=== PATIENT | female | born 1950 | race Caucasian/White ===

== ENCOUNTER 2018-12-24 18:46 | Inpatient (IN) | payer MEDICAID, OTHER ==
[~2018-12-24] VITALS: Ht 157.5 cm; Wt 65.0 kg
[2018-12-24] MEDS ORDERED: IBUPROFEN 800 MG TAB PO ONE (19:00)
[2018-12-24] MEDS ORDERED: ATOR40TA68 PO (19:43)
[2018-12-24] MEDS ORDERED: LISI10TA2 PO (19:43)
[2018-12-24] MEDS ORDERED: ASPI-817 PO (19:43)
[2018-12-24] MEDS ORDERED: ONDANSETRON 4 MG INJ IV STA (19:44)
[2018-12-24] MEDS ORDERED: METF100010 PO (19:44)
[2018-12-24] MEDS ORDERED: METO-448 PO (19:44)
[2018-12-24] MEDS ORDERED: morphine 4 MG/ML VIAL IV STA (19:44)
[2018-12-24] MEDS ORDERED: CA/D1TAB3 PO (19:44)
[2018-12-24] MEDS ORDERED: ALEN70TA5 PO (19:45)
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
[2018-12-24] MEDS ORDERED: ACETAMINOPHEN 325 MG TAB PO PRN (20:00)
[2018-12-24] MEDS ORDERED: ONDANSETRON 4 MG INJ IV PRN (20:00)
[2018-12-24 22:47] VITALS: BP 175/73; PULSE 84; RESP 18
[2018-12-24] MEDS ORDERED: morphine 4 MG/ML VIAL IV PRN (23:00)
[2018-12-24 23:02] VITALS: Ht 157.5 cm; Wt 65.0 kg
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
[2018-12-25] MEDS ORDERED: HYDROCODONE/APAP (5/325) TAB PO PRN
[2018-12-25] MEDS ORDERED: morphine 2 MG INJ IV PRN
[2018-12-25] MEDS ORDERED: ALBUTEROL/IPRATROPIUM (NEB) 3 ML AMP HHN PRN
[2018-12-25] MEDS ORDERED: NACL 0.9% 3 ML SYG IV SCH
[2018-12-25] MEDS ORDERED: METOPROLOL 25 MG TAB PO ONE (01:00)
[2018-12-25 02:43] VITALS: BP 164/71; PULSE 82; RESP 16
[2018-12-25] MEDS ORDERED: HYDROmorphONE 1 MG/ML SYG IV ONE (03:00)
[2018-12-25 07:38] VITALS: BP 152/71; PULSE 84; RESP 18
[2018-12-25] MEDS: LISINOPRIL 10 MG TAB PO SCH (08:45)
[2018-12-25] MEDS: HEPARIN 5,000 UNIT/1 ML VIAL SC SCH (08:45)
[2018-12-25] MEDS: METOPROLOL 25 MG TAB PO SCH ×2 (08:46→20:50)
[2018-12-25] MEDS ORDERED: DEXTROSE 50% 50 ML SYRINGE IV PRN ×2 (09:30)
[2018-12-25] MEDS ORDERED: GLUCAGON 1 MG INJ IM PRN (09:30)
[2018-12-25] MEDS ORDERED: GLUCOSE GEL 15 GRAM TUBE BUCCAL PRN (09:30)
[2018-12-25] MEDS ORDERED: GLUCOSE GEL 15 GRAM TUBE PO PRN ×2 (09:30)
[2018-12-25] MEDS: DEXTROSE 5%-0.45% NACL 1,000 ML IV SCH ×2 (09:30→19:30)
[2018-12-25] MEDS ORDERED: hydrALAzine 20 MG INJ IV PRN (09:30)
[2018-12-25] MEDS ORDERED: morphine 4 MG/ML VIAL IV PRN (11:00)
[2018-12-25] MEDS: INSULIN ASPART [NOVOLOG] 3 ML PEN SC SCH ×3 (12:44→20:59)
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
--- NOTE | 2018-12-25 14:38 | PN ---
Date/Time of Note Date/Time of Note DATE: 12/25/18 TIME: 14:38 Objective Vitals Vital Signs Date Temp Pulse Resp B/P (MAP) Pulse Ox O2 O2 Flow FiO2 Time Delivery Rate 12/25/18 98.0 84 18 152/71 97 Room Air 07:38 (98) Intake and Output 12/24/18 12/24/18 12/25/18 1515:00 23:00 07:00 IntakeIntake Total 120 ml 380 ml BalanceBalance 120 ml 380 ml Results Result Diagram: 12/25/18 0452 12/25/18 0452 Medications Medications Current Medications Ondansetron HCl (Zofran Inj) 4 mg BRIDGE ORDER PRN IV NAUSEA/VOMITING; Start 12/24/18 at 20:00; Stop 12/25/18 at 19:59 Acetaminophen (Tylenol Tab) 650 mg ER BRIDGE PRN PO .MILD PAIN 1-3 OR TEMP; Start 12/24/18 at 20:00; Stop 12/25/18 at 19:59 IV Flush (NS 3 ml) 3 ml PER PROTOCOL IV ; Start 12/25/18 at 00:00 Acetaminophen (Tylenol Tab) 650 mg Q6H PRN PO .PAIN 1-3 OR TEMP; Start 12/25/18 at 00:00 Acetaminophen/ Hydrocodone Bitart ([place] (5/325)) 1 tab Q6H PRN PO .MOD PAIN 4- 6 Last administered on 12/25/18at 08:46; Admin Dose 1 TAB; Start 12/25/18 at 00:00 Acetaminophen/ Hydrocodone Bitart ([place] (5/325)) 2 tab Q6H PRN PO .SEVERE PAIN 7-10; Start 12/25/18 at 00:00 Heparin Sodium (Porcine) (Heparin (5000 Units/1ml)) 5,000 unit Q12 SC Last administered on 12/25/18at 08:45; Admin Dose 5,000 UNIT; Start 12/25/18 at 09:00; Status Hold Albuterol/ Ipratropium (Duoneb) 3 ml Q2H RESP THERAPY PRN HHN SHORTNESS OF BREATH; Start 12/25/18 at 00:00 Atorvastatin Calcium (Lipitor) 40 mg QHS PO ; Start 12/25/18 at 21:00 Lisinopril (Zestril) 10 mg DAILY PO Last administered on 12/25/18at 08:45; Admin Dose 10 MG; Start 12/25/18 at 09:00 Metoprolol Tartrate (Lopressor) 12.5 mg BID PO Last administered on 12/25/18at 08:46; Admin Dose 12.5 MG; Start 12/25/18 at 09:00 Morphine Sulfate (morphine) 4 mg Q4H PRN IV SEVERE PAIN LEVEL 7-10; Start 12/25/18 at 11:00 Diagnostic Test (Pha) (Accu-Chek) 1 ea 02 XX ; Start 12/26/18 at 02:00 Insulin Aspart (Novolog Insulin Pen) NOVOLOG *MILD* ALGORITHM WITH MEALS BEDTIME SC Last administered on 12/25/18at 12:44; Admin Dose 2 UNIT; Start 12/25/18 at 11:40 Hydralazine HCl (Apresoline) 10 mg Q4H PRN IV sbp >160; Start 12/25/18 at 09:30 Dextrose/Sodium Chloride 1,000 ml @ 100 mls/hr Q10H IV ; Start 12/25/18 at 09:30 Miscellaneous Information 1 ea NOTE XX ; Start 12/25/18 at 09:30 Glucose (Glutose) 15 gm Q15M PRN PO DECREASED GLUCOSE; Start 12/25/18 at 09:30 Glucose (Glutose) 22.5 gm Q15M PRN PO DECREASED GLUCOSE; Start 12/25/18 at 09:30 Dextrose (D50w Syringe) 25 ml Q15M PRN IV DECREASED GLUCOSE; Start 12/25/18 at 09:30 Dextrose (D50w Syringe) 50 ml Q15M PRN IV DECREASED GLUCOSE; Start 12/25/18 at 09:30 Glucagon (Glucagen) 1 mg Q15M PRN IM DECREASED GLUCOSE; Start 12/25/18 at 09:30 Glucose (Glutose) 15 gm Q15M PRN BUCCAL DECREASED GLUCOSE; Start 12/25/18 at 09:30 VTE Prophylaxis Risk score (from Nsg)>0 risk: 2 SCD applied (from Nsg): No SCD contraindication: other Lines/Catheters IV Catheter Type: Rodriguez in Place: Yes Cont'd rodriguez catheter reason: terminal illness/intractable pain Assessment/Plan Hospital Course Subjective Patient having leg and foot pain otherwise doing well Objective Physical exam General: Patient is laying in bed and answers questions appropriately Mentation: Patient is alert and oriented 4, Head: Normocephalic atraumatic Eyes: EOMI, pupils reactive to light Neck: Supple, nontender, midline Respiratory: Clear to auscultation bilaterally Cardiovascular: regular rate, no obvious murmurs Gastrointestinal: non-tender to palpation, bowel sounds heard. Neurological: Moves all extremities spontaneously Skin: Lower extremity bandaged, CDI bilaterally Assessment and plan Right tibial plateau and left fourth metatarsal fracture -Tib-fib x-ray was noted accidentally to be on the left leg which I confirmed with radiology as to be a typographical error, no fracture on left tibial plateau only right -CT done, orthopedic surgery to reevaluate CT for possible need of surgical intervention Hypertension -Continue home meds Diabetes -Insulin while in house Dyslipidemia -Continue home meds Anemia -Monitor Disposition -Follow-up with orthopedic surgery recommendations, cardiology has been consult ed for preop clearance. NITA MI Dec 25, 2018 14:38
[2018-12-25 16:30] VITALS: BP 147/67; PULSE 82; RESP 18
[2018-12-25] MEDS: HYDROCODONE/APAP (5/325) TAB PO PRN (16:30)
--- NOTE | 2018-12-25 17:28 | RADRPT ---
Echocardiogram Report Patient Name: BRITT CORTESPatient ID: [id number] : 1950 (68y 2m)Study Date: 12/25/2018 12:16:10 PM Gender: FAccession #: [id number] Tech: LE Location: Ref.Physician: NITA MI Height(Cm): BSA: Weight(Kg): Quality: GoodAccount #: Procedures: Echocardiographic Report: Transthoracic echocardiogram with complete 2D, M-Mode, and doppler examination. Indications: Evaluate Left Ventricular function. Measurements: 2D/M Mode Doppler Measurement Value Normal Range Measurement Value Normal Range LVIDd 2D 3.8 [ 3.8 - 5.2 ] cm RHONDA VTI 2.2 [ 2.0 - 4.0 ] cm2 LVIDs 2D 2.6 [ 2.2 - 3.5 ] cm AV Mean Ruslan 0.9 [ 70.0 - 90.0 ] cm/sec LVPWd 2D 1.0 [ 0.6 - 0.9 ] cm AV Mean PG 3.0 [ 2.0 - 4.0 ] mmHg IVSd 2D 1.0 [ 0.6 - 0.9 ] cm AV VTI 25.9 cm EDV 2D 63.1 [ 46.0 - 106.0 ] ml AI Peak PG 58.0 mmHg ESV 2D 25.1 [ 14.0 - 42.0 ] ml AI Peak Ruslan 3.8 cm/sec EF 2D 60.2 [ 54.0 - 74.0 ] percent AI PHT 322.0 msec LVOT Diam 1.9 [ 2.1 - 2.5 ] cm LVOT Mean Ruslan 0.7 [ 60.0 - 80.0 ] cm/sec LVOT Mean PG 2.0 [ 1.0 - 3.0 ] mmHg LVOT Peak Ruslan 1.0 [ 70.0 - 110.0 ] cm/sec LVOT Peak PG 4.0 [ 2.0 - 6.0 ] mmHg LVOT VTI 20.4 [ 20.0 - 30.0 ] cm MV E Peak Ruslan 0.7 [ 60.0 - 130.0 ] cm/sec MV A Peak Ruslan 0.9 [ 100.0 - 120.0 ] cm/sec MV E/A 0.7 [ 0.8 - 1.5 ] ratio MV Decel Time 303 [ 104 - 258 ] msec Lat E` Ruslan 0.1 [ 10.0 - 15.0 ] cm/sec Lateral E/E` 10.7 [ 1.0 - 2.0 ] ratio Med E` Ruslan 0.1 cm/sec MV E/A 0.7 [ 0.8 - 1.5 ] ratio TR Peak Ruslan 2.1 [ 100.0 - 280.0 ] cm/sec TR Peak PG 17.0 mmHg PV Peak Ruslan 0.5 [ 40.0 - 80.0 ] cm/sec PV Peak PG 1.0 mmHg RVSP 20.0 [ 10.0 - 36.0 ] mmHg RA Pressure 3.0 mmHg Findings: Left Ventricle: Normal left ventricular systolic function. Normal left ventricular cavity size. Normal left ventricular wall thickness. Ejection fraction is visually estimated at 60 %. Tissue Doppler/Mitral Doppler indices are consistent with impaired relaxation (Stage I diastolic dysfunction). Right Ventricle: Normal right ventricular size. Normal right ventricular systolic function. Left Atrium: Upper limit of normal left atrial size. Right Atrium: The right atrium is normal in size. Atrial Septum: Normal atrial septum. Mitral Valve: Normal appearance and function of the mitral valve with trace physiologic regurgitation. Mild mitral leaflet calcification. Aortic Valve: Normal appearance of the aortic valve. No significant aortic stenosis with mild insufficiency. Tricuspid Valve: Normal appearance of the tricuspid valve. Normal right ventricular systolic pressure. Estimated peak PA systolic pressure 20 mmHg. There is trace tricuspid regurgitation. Pulmonic Valve: Pulmonic valve not well visualized. No evidence of pulmonic regurgitation. Pericardium: Normal pericardium with no significant pericardial effusion. Aorta: Normal aortic root. IVC: Normal size and normal respiratory collapse consistent with normal right atrial pressure. Conclusions: Normal left ventricular systolic function. Normal left ventricular cavity size. Normal left ventricular wall thickness. Ejection fraction is visually estimated at 60 %. Tissue Doppler/Mitral Doppler indices are consistent with impaired relaxation (Stage I diastolic dysfunction). Electronically Signed By: Stanley Urena 2018-12-25 17:28:02 PDT
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
[2018-12-25 20:20] VITALS: BP 128/56; PULSE 80; RESP 18
[2018-12-25] MEDS: ATORVASTATIN 40 MG TAB PO SCH (20:50)
[2018-12-26] MEDS: ACCU-CHEK XX SCH (01:26)
[2018-12-26 02:32] VITALS: BP 145/64; PULSE 81; RESP 18
[2018-12-26] MEDS: DEXTROSE 5%-0.45% NACL 1,000 ML IV SCH ×2 (02:41→15:30)
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
[2018-12-26 08:00] VITALS: BP 126/64; PULSE 79; RESP 18
[2018-12-26] MEDS: LISINOPRIL 10 MG TAB PO SCH (08:55)
[2018-12-26] MEDS: METOPROLOL 25 MG TAB PO SCH ×2 (08:55→21:34)
[2018-12-26] MEDS: INSULIN ASPART [NOVOLOG] 3 ML PEN SC SCH ×4 (08:58→21:38)
[2018-12-26 14:00] VITALS: BP 135/77; PULSE 83; RESP 18
--- NOTE | 2018-12-26 14:18 | PN ---
Date/Time of Note Date/Time of Note DATE: 12/26/18 TIME: 14:18 Objective Vitals Vital Signs Date Temp Pulse Resp B/P (MAP) Pulse Ox O2 O2 Flow FiO2 Time Delivery Rate 12/26/18 98.8 79 18 126/64 96 08:00 (84) 12/25/18 Room Air 16:30 Intake and Output 12/25/18 12/25/18 12/26/18 1515:00 23:00 07:00 IntakeIntake Total 540 ml 480 ml OutputOutput Total 500 ml 500 ml BalanceBalance 40 ml -20 ml Results Result Diagram: 12/26/18 0427 12/26/18 0427 Medications Medications Current Medications IV Flush (NS 3 ml) 3 ml PER PROTOCOL IV ; Start 12/25/18 at 00:00 Acetaminophen (Tylenol Tab) 650 mg Q6H PRN PO .PAIN 1-3 OR TEMP; Start 12/25/18 at 00:00 Acetaminophen/ Hydrocodone Bitart ([place] (5/325)) 1 tab Q6H PRN PO .MOD PAIN 4- 6 Last administered on 12/25/18at 08:46; Admin Dose 1 TAB; Start 12/25/18 at 00:00 Acetaminophen/ Hydrocodone Bitart ([place] (5/325)) 2 tab Q6H PRN PO .SEVERE PAIN 7-10 Last administered on 12/25/18at 16:30; Admin Dose 2 TAB; Start 12/25/18 at 00:00 Heparin Sodium (Porcine) (Heparin (5000 Units/1ml)) 5,000 unit Q12 SC Last administered on 12/25/18at 08:45; Admin Dose 5,000 UNIT; Start 12/25/18 at 09:00; Status Hold Albuterol/ Ipratropium (Duoneb) 3 ml Q2H RESP THERAPY PRN HHN SHORTNESS OF BREATH; Start 12/25/18 at 00:00 Atorvastatin Calcium (Lipitor) 40 mg QHS PO Last administered on 12/25/18at 20:50; Admin Dose 40 MG; Start 12/25/18 at 21:00 Lisinopril (Zestril) 10 mg DAILY PO Last administered on 12/26/18at 08:55; Admin Dose 10 MG; Start 12/25/18 at 09:00 Metoprolol Tartrate (Lopressor) 12.5 mg BID PO Last administered on 12/26/18at 08:55; Admin Dose 12.5 MG; Start 12/25/18 at 09:00 Diagnostic Test (Pha) (Accu-Chek) 1 ea 02 XX Last administered on 12/26/18at 01:26; Admin Dose 1 EA; Start 12/26/18 at 02:00 Insulin Aspart (Novolog Insulin Pen) NOVOLOG *MILD* ALGORITHM WITH MEALS BEDTIME SC Last administered on 12/26/18at 13:26; Admin Dose 3 UNIT; Start 12/25/18 at 11:40 Hydralazine HCl (Apresoline) 10 mg Q4H PRN IV sbp >160; Start 12/25/18 at 09:30 Dextrose/Sodium Chloride 1,000 ml @ 100 mls/hr Q10H IV ; Start 12/25/18 at 09:30 Miscellaneous Information 1 ea NOTE XX ; Start 12/25/18 at 09:30 Glucose (Glutose) 15 gm Q15M PRN PO DECREASED GLUCOSE; Start 12/25/18 at 09:30 Glucose (Glutose) 22.5 gm Q15M PRN PO DECREASED GLUCOSE; Start 12/25/18 at 09:30 Dextrose (D50w Syringe) 25 ml Q15M PRN IV DECREASED GLUCOSE; Start 12/25/18 at 09:30 Dextrose (D50w Syringe) 50 ml Q15M PRN IV DECREASED GLUCOSE; Start 12/25/18 at 09:30 Glucagon (Glucagen) 1 mg Q15M PRN IM DECREASED GLUCOSE; Start 12/25/18 at 09:30 Glucose (Glutose) 15 gm Q15M PRN BUCCAL DECREASED GLUCOSE; Start 12/25/18 at 09:30 Morphine Sulfate (morphine) 1 mg Q4H PRN IV SEVERE PAIN LEVEL 7-10; Start 12/26/18 at 15:00 VTE Prophylaxis Risk score (from Nsg)>0 risk: 3 SCD applied (from Nsg): No SCD contraindication: other Lines/Catheters IV Catheter Type: Gamez in Place: No Assessment/Plan Hospital Course Subjective Patient having leg and foot pain otherwise doing well Objective Physical exam General: Patient is laying in bed and answers questions appropriately Mentation: Patient is alert and oriented 4, Head: Normocephalic atraumatic Eyes: EOMI, pupils reactive to light Neck: Supple, nontender, midline Respiratory: Clear to auscultation bilaterally Cardiovascular: regular rate, no obvious murmurs Gastrointestinal: non-tender to palpation, bowel sounds heard. Neurological: Moves all extremities spontaneously Skin: Lower extremity bandaged, CDI bilaterally Assessment and plan Right tibial plateau and left fourth metatarsal fracture -Tib-fib x-ray was noted accidentally to be on the left leg which I confirmed with radiology as to be a typographical error, no fracture on left tibial plateau only right -CT done, orthopedic surgery to reevaluate CT for possible need of surgical intervention Hypertension -Continue home meds Diabetes -Insulin while in house Dyslipidemia -Continue home meds Anemia -Monitor Disposition -Follow-up with orthopedic surgery recommendations, cardiology has been consulted for preop clearance. NITA MI Dec 26, 2018 14:18
[2018-12-26] MEDS ORDERED: morphine 2 MG INJ IV PRN (15:00)
[2018-12-26] MEDS: HYDROCODONE/APAP (5/325) TAB PO PRN ×2 (15:11→22:33)
[2018-12-26 20:47] VITALS: BP 116/59; PULSE 80; RESP 20
[2018-12-26] MEDS: ATORVASTATIN 40 MG TAB PO SCH (21:33)
[2018-12-26] MEDS: HEPARIN 5,000 UNIT/1 ML VIAL SC SCH (21:39)
[2018-12-27] MEDS: DEXTROSE 5%-0.45% NACL 1,000 ML IV SCH ×3 (01:30→21:30)
[2018-12-27] MEDS: ACCU-CHEK XX SCH (01:36)
[2018-12-27 02:14] VITALS: BP 131/61; PULSE 95; RESP 18
[2018-12-27] MEDS: HYDROCODONE/APAP (5/325) TAB PO PRN (04:29)
[2018-12-27 08:27] VITALS: BP 121/57; PULSE 86; RESP 18
[2018-12-27] MEDS: METOPROLOL 25 MG TAB PO SCH ×2 (09:34→20:17)
[2018-12-27] MEDS: HEPARIN 5,000 UNIT/1 ML VIAL SC SCH (09:35)
[2018-12-27] MEDS: LISINOPRIL 10 MG TAB PO SCH (09:35)
[2018-12-27] MEDS: INSULIN ASPART [NOVOLOG] 3 ML PEN SC SCH ×4 (09:36→20:20)
--- NOTE | 2018-12-27 12:57 | PN ---
Date/Time of Note Date/Time of Note DATE: 12/27/18 TIME: 12:57 Objective Vitals Vital Signs Date Temp Pulse Resp B/P (MAP) Pulse Ox O2 O2 Flow FiO2 Time Delivery Rate 12/27/18 98.3 86 18 121/57 96 08:27 (78) 12/25/18 Room Air 16:30 Intake and Output 12/26/18 12/26/18 12/27/18 1515:00 23:00 07:00 OutputOutput Total 2800 ml BalanceBalance -2800 ml Results Result Diagram: 12/27/18 0419 12/27/18 0419 Medications Medications Current Medications IV Flush (NS 3 ml) 3 ml PER PROTOCOL IV ; Start 12/25/18 at 00:00 Acetaminophen (Tylenol Tab) 650 mg Q6H PRN PO .PAIN 1-3 OR TEMP; Start 12/25/18 at 00:00 Acetaminophen/ Hydrocodone Bitart ([place] (5/325)) 1 tab Q6H PRN PO .MOD PAIN 4- 6 Last administered on 12/25/18at 08:46; Admin Dose 1 TAB; Start 12/25/18 at 00:00 Acetaminophen/ Hydrocodone Bitart ([place] (5/325)) 2 tab Q6H PRN PO .SEVERE PAIN 7-10 Last administered on 12/27/18 04:29; Admin Dose 2 TAB; Start 12/25/18 at 00:00 Heparin Sodium (Porcine) (Heparin (5000 Units/1ml)) 5,000 unit Q12 SC Last administered on 12/27/18 09:35; Admin Dose 5,000 UNIT; Start 12/25/18 at 09:00; Status Hold Albuterol/ Ipratropium (Duoneb) 3 ml Q2H RESP THERAPY PRN HHN SHORTNESS OF BREATH; Start 12/25/18 at 00:00 Atorvastatin Calcium (Lipitor) 40 mg QHS PO Last administered on 12/26/18at 21:33; Admin Dose 40 MG; Start 12/25/18 at 21:00 Lisinopril (Zestril) 10 mg DAILY PO Last administered on 12/27/18at 09:35; Admin Dose 10 MG; Start 12/25/18 at 09:00 Metoprolol Tartrate (Lopressor) 12.5 mg BID PO Last administered on 3/17/19at 09:34; Admin Dose 12.5 MG; Start 12/25/18 at 09:00 Diagnostic Test (Pha) (Accu-Chek) 1 ea 02 XX Last administered on 12/26/18at 01:26; Admin Dose 1 EA; Start 12/26/18 at 02:00 Insulin Aspart (Novolog Insulin Pen) NOVOLOG *MILD* ALGORITHM WITH MEALS BEDTIME SC Last administered on 12/27/18at 09:36; Admin Dose 2 UNIT; Start 12/25/18 at 11:40 Hydralazine HCl (Apresoline) 10 mg Q4H PRN IV sbp >160; Start 12/25/18 at 09:30 Dextrose/Sodium Chloride 1,000 ml @ 100 mls/hr Q10H IV ; Start 12/25/18 at 09:30 Miscellaneous Information 1 ea NOTE XX ; Start 12/25/18 at 09:30 Glucose (Glutose) 15 gm Q15M PRN PO DECREASED GLUCOSE; Start 12/25/18 at 09:30 Glucose (Glutose) 22.5 gm Q15M PRN PO DECREASED GLUCOSE; Start 12/25/18 at 09:30 Dextrose (D50w Syringe) 25 ml Q15M PRN IV DECREASED GLUCOSE; Start 12/25/18 at 09:30 Dextrose (D50w Syringe) 50 ml Q15M PRN IV DECREASED GLUCOSE; Start 12/25/18 at 09:30 Glucagon (Glucagen) 1 mg Q15M PRN IM DECREASED GLUCOSE; Start 12/25/18 at 09:30 Glucose (Glutose) 15 gm Q15M PRN BUCCAL DECREASED GLUCOSE; Start 12/25/18 at 09:30 Morphine Sulfate (morphine) 1 mg Q4H PRN IV SEVERE PAIN LEVEL 7-10 Last administered on 12/26/18at 18:02; Admin Dose 1 MG; Start 12/26/18 at 15:00 VTE Prophylaxis Risk score (from Nsg)>0 risk: 12 SCD applied (from Nsg): Yes Lines/Catheters IV Catheter Type: Rodriguez in Place: Yes Cont'd rodriguez catheter reason: terminal illness/intractable pain Assessment/Plan Hospital Course Subjective Patient having leg and foot pain otherwise doing well Objective Physical exam General: Patient is laying in bed and answers questions appropriately Mentation: Patient is alert and oriented 4, Head: Normocephalic atraumatic Eyes: EOMI, pupils reactive to light Neck: Supple, nontender, midline Respiratory: Clear to auscultation bilaterally Cardiovascular: regular rate, no obvious murmurs Gastrointestinal: non-tender to palpation, bowel sounds heard. Neurological: Moves all extremities spontaneously Skin: Lower extremity bandaged, CDI bilaterally Assessment and plan Right tibial plateau and left fourth metatarsal fracture -Tib-fib x-ray was noted accidentally to be on the left leg which I confirmed with radiology as to be a typographical error, no fracture on left tibial plateau only right -CT done, orthopedic surgery to reevaluate CT for possible need of surgical intervention Hypertension -Continue home meds Diabetes -Insulin while in house Dyslipidemia -Continue home meds Anemia -Monitor Disposition -Follow-up with orthopedic surgery recommendations, cardiology has risk stratified patient. NITA MI Dec 27, 2018 12:57
[2018-12-27 14:20] VITALS: BP 159/76; PULSE 88; RESP 18
[2018-12-27 15:12] VITALS: BP 138/74; PULSE 86; RESP 18
[2018-12-27] MEDS: traMADol 50 MG TAB PO PRN (15:27)
--- NOTE | 2018-12-27 17:18 | CONS ---
Assessment/Plan Assessment/Plan Hospital Course (Demo Recall) Assessment: Pre-operative cardiac evaluation - possible right knee surgery Lateral tibial plateau fracture of the right knee Left 4th metatarsal fracture Hypertension Dyslipidemia Diabetes mellitus History of breast cancer, status post left mastectomy Recommendations: Low to intermediate cardiac risk patient planned for moderate cardiac risk procedure. No evidence of unstable cardiac condition. Patient is optimized for surgery from cardiac standpoint. -EKG and echocardiogram reviewed -continue metoprolol and lisinopril -continue atorvastatin Consultation Date/Type/Reason Admit Date/Time Dec 24, 2018 at 19:49 Initial Consult Date Type of Consult Cardiology Date/Time of Note DATE: 12/27/18 TIME: : 24 HR Interval Summary Free Text/Dictation No acute events. Detailed Summary Additional Comments 14 point review of systems without changes. Exam/Review of Systems Vital Signs Vitals Vital Signs Date Temp Pulse Resp B/P (MAP) Pulse Ox O2 O2 Flow FiO2 Time Delivery Rate 12/27/18 98.5 86 18 138/74 97 15:12 (95) 12/25/18 Room Air 16:30 Intake and Output 12/26/18 12/26/18 12/27/18 1515:00 23:00 07:00 OutputOutput Total 2800 ml BalanceBalance -2800 ml Exam Exam Constitutional: alert, well developed Psych: no complaints, nl mood/affect Head: normocephalic, atraumatic Eyes: nl conjunctiva, nl lids ENMT: nl external ears & nose, nl nasal mucosa & septum Neck: supple, non-tender; No jvd Respiratory: clear to auscultation Cardiovascular: regular rate and rhythm Gastrointestinal: soft, non-tender Musculoskeletal: other (right lower extremity immobilized) Extremities: No cyanosis, No clubbing, No edema Neurological: nl mental status, nl speech Labs Result Diagram: 12/27/18 0419 12/27/18 0419 Results 24hrs Laboratory Tests Test 12/26/18 17:44 12/26/18 21:32 12/27/18 01:32 12/27/18 04:19 Bedside Glucose 184 262 H 197 White Blood Count 10.3 Red Blood Count 4.00 L Hemoglobin 11.4 L Hematocrit 34.6 L Mean Corpuscular 86.5 Volume Mean Corpuscular 28.5 L Hemoglobin Mean Corpuscular 32.9 Hemoglobin Concent Red Cell 12.6 Distribution Width Platelet Count 228 Mean Platelet Volume 11.1 H Immature 0.200 Granulocytes % Neutrophils % 59.5 Lymphocytes % 18.0 Monocytes % 9.8 Eosinophils % 11.8 H Basophils % 0.7 Nucleated Red Blood 0.0 Cells % Immature 0.020 Granulocytes # Neutrophils # 6.1 Lymphocytes # 1.9 Monocytes # 1.0 H Eosinophils # 1.2 H Basophils # 0.1 Nucleated Red Blood 0.0 Cells # Sodium Level 134 L Potassium Level 4.2 Chloride Level 99 Carbon Dioxide Level 25 Anion Gap 10 Blood Urea Nitrogen 13 Creatinine 0.51 Est Glomerular > 60 Filtrat Rate mL/min Glucose Level 212 Calcium Level 9.1 Phosphorus Level 3.7 Magnesium Level 1.9 Test 12/27/18 08:43 12/27/18 12:40 Bedside Glucose 217 213 Medications Medications Current Medications IV Flush (NS 3 ml) 3 ml PER PROTOCOL IV ; Start 12/25/18 at 00:00 Acetaminophen (Tylenol Tab) 650 mg Q6H PRN PO .PAIN 1-3 OR TEMP; Start 12/25/18 at 00:00 Acetaminophen/ Hydrocodone Bitart ([place] (5/325)) 1 tab Q6H PRN PO .MOD PAIN 4- 6 Last administered on 12/25/18at 08:46; Admin Dose 1 TAB; Start 12/25/18 at 00:00 Heparin Sodium (Porcine) (Heparin (5000 Units/1ml)) 5,000 unit Q12 SC Last administered on 12/27/18at 09:35; Admin Dose 5,000 UNIT; Start 12/25/18 at 09:00; Status Hold Albuterol/ Ipratropium (Duoneb) 3 ml Q2H RESP THERAPY PRN HHN SHORTNESS OF BREATH; Start 12/25/18 at 00:00 Atorvastatin Calcium (Lipitor) 40 mg QHS PO Last administered on 12/26/18at 21:33; Admin Dose 40 MG; Start 12/25/18 at 21:00 Lisinopril (Zestril) 10 mg DAILY PO Last administered on 12/27/18at 09:35; Admin Dose 10 MG; Start 12/25/18 at 09:00 Metoprolol Tartrate (Lopressor) 12.5 mg BID PO Last administered on 12/27/18at 09:34; Admin Dose 12.5 MG; Start 12/25/18 at 09:00 Diagnostic Test (Pha) (Accu-Chek) 1 ea 02 XX Last administered on 12/26/18at 01:26; Admin Dose 1 EA; Start 12/26/18 at 02:00 Insulin Aspart (Novolog Insulin Pen) NOVOLOG *MILD* ALGORITHM WITH MEALS BE DTIME SC Last administered on 12/27/18at 13:19; Admin Dose 2 UNIT; Start 12/25/18 at 11:40 Hydralazine HCl (Apresoline) 10 mg Q4H PRN IV sbp >160; Start 12/25/18 at 09:30 Dextrose/Sodium Chloride 1,000 ml @ 100 mls/hr Q10H IV ; Start 12/25/18 at 09:30 Miscellaneous Information 1 ea NOTE XX ; Start 12/25/18 at 09:30 Glucose (Glutose) 15 gm Q15M PRN PO DECREASED GLUCOSE; Start 12/25/18 at 09:30 Glucose (Glutose) 22.5 gm Q15M PRN PO DECREASED GLUCOSE; Start 12/25/18 at 09:30 Dextrose (D50w Syringe) 25 ml Q15M PRN IV DECREASED GLUCOSE; Start 12/25/18 at 09:30 Dextrose (D50w Syringe) 50 ml Q15M PRN IV DECREASED GLUCOSE; Start 12/25/18 at 09:30 Glucagon (Glucagen) 1 mg Q15M PRN IM DECREASED GLUCOSE; Start 12/25/18 at 09:30 Glucose (Glutose) 15 gm Q15M PRN BUCCAL DECREASED GLUCOSE; Start 12/25/18 at 09:30 Morphine Sulfate (morphine) 1 mg Q4H PRN IV SEVERE PAIN LEVEL 7-10 Last administered on 12/26/18at 18:02; Admin Dose 1 MG; Start 12/26/18 at 15:00 Tramadol HCl (Ultram) 50 mg Q6H PRN PO MODERATE PAIN LEVEL 4-6 Last administered on 12/27/18at 15:27; Admin Dose 50 MG; Start 12/27/18 at 15:00 HOWARD ALLISON MD Dec 27, 2018 17:18
[2018-12-27 19:55] VITALS: BP 159/76; PULSE 89; RESP 16
[2018-12-27] MEDS: ATORVASTATIN 40 MG TAB PO SCH (20:17)
--- NOTE | 2018-12-27 23:11 | PN ---
DATE: 12/27/2018 CT scan of the right knee revealed a lateral tibial plateau fracture with at least 5 mm of depression . She will be scheduled for open reduction and internal fixation of the lateral tibial plateau fract ure with bone graft. Her right knee will be protected with a long leg brace with a dial lock at the knee joint postoperatively. Dictated By: ALONSO SCHILLING/SCOTTIE Conf#: [id number] DID#: [id number] CC: IFTIKHAR TERAN MD;*EndCC*
[2018-12-28] MEDS: ACCU-CHEK XX SCH (02:00)
[2018-12-28] MEDS ORDERED: ALPRAZOLAM 1 MG TAB PO ONE ×2 (02:30→05:30)
[2018-12-28 02:34] VITALS: BP 165/73; PULSE 89; RESP 18
[2018-12-28 02:50] VITALS: BP 142/70; RESP 16
[2018-12-28] MEDS: DEXTROSE 5%-0.45% NACL 1,000 ML IV SCH (07:30)
[2018-12-28 07:51] VITALS: BP 134/61; PULSE 92; RESP 18
--- NOTE | 2018-12-28 09:44 | PN ---
Date/Time of Note Date/Time of Note DATE: 12/28/18 TIME: 09:44 Assessment/Plan VTE Prophylaxis Risk score (from Nsg)>0 risk: 8 SCD applied (from Nsg): Yes Pharmacological prophylaxis: heparin Lines/Catheters IV Catheter Type (from Nrsg): Saline Lock Urinary Cath still in place: Yes Reason Cath still needed: terminal illness/intractable pain Assessment/Plan Assessment/Plan 1. Right tibial plateau and left fourth metatarsal fracture - Ortho on board and plans for ORIF tomorrow - will keep NPO after midnight and hold heparin - Xray LE noted - Cardiology input appreciated and ECHO/EKG reviewed. Continue current medications 2. Hypertension - Continue home meds 3. Diabetes - Insulin while in house - on metformin as outpatient 4. Dyslipidemia - Continue home meds 5. Mild Anemia - Monitor 6. Disposition - Plans for orthopedic intervention tomorrow Result Diagram: 12/28/18 0436 12/28/18 0436 Results 24hrs Laboratory Tests Test 12/27/18 12:40 12/27/18 17:46 12/27/18 20:16 12/28/18 01:51 Bedside Glucose 213 217 206 200 Test 12/28/18 04:36 12/28/18 08:24 White Blood Count 11.6 H Red Blood Count 4.12 L Hemoglobin 11.7 L Hematocrit 34.7 L Mean Corpuscular 84.2 Volume Mean Corpuscular 28.4 L Hemoglobin Mean Corpuscular 33.7 Hemoglobin Concent Red Cell 12.2 Distribution Width Platelet Count 255 Mean Platelet Volume 10.6 H Immature 0.300 Granulocytes % Neutrophils % 64.6 Lymphocytes % 17.0 Monocytes % 11.4 H Eosinophils % 6.3 Basophils % 0.4 Nucleated Red Blood 0.0 Cells % Immature 0.040 H Granulocytes # Neutrophils # 7.5 Lymphocytes # 2.0 Monocytes # 1.3 H Eosinophils # 0.7 H Basophils # 0.1 Nucleated Red Blood 0.0 Cells # Sodium Level 134 L Potassium Level 4.3 Chloride Level 95 L Carbon Dioxide Level 24 Anion Gap 15 H Blood Urea Nitrogen 14 Creatinine 0.41 L Est Glomerular > 60 Filtrat Rate mL/min Glucose Level 206 Calcium Level 8.9 Phosphorus Level 3.1 Magnesium Level 2.0 Bedside Glucose 204 Subjective 24 Hr Interval Summary Free Text/Dictation Patient sleeping this am after given pain medications. Per daughter at bedside, patient has been hallucinating and pain control adjusted yesterday. Exam/Review of Systems Exam Vitals Vital Signs Date Temp Pulse Resp B/P (MAP) Pulse Ox O2 O2 Flow FiO2 Time Delivery Rate 12/28/18 98.2 92 18 134/61 96 07:51 (85) 12/25/18 Room Air 16:30 Intake and Output 12/27/18 12/27/18 12/28/18 1515:00 23:00 07:00 OutputOutput Total 1000 ml 1000 ml BalanceBalance -1000 ml -1000 ml Exam General: Patient is laying in bed and answers questions appropriately Respiratory: Clear to auscultation bilaterally. no wheezing or rhonchi Cardiovascular: regular rate and rhythm, no obvious murmurs Gastrointestinal: non-tender to palpation, bowel sounds heard. Ext: non mobilized right LE Skin: Lower extremity bandaged, CDI bilaterally Results Results 24hrs Laboratory Tests Test 12/27/18 12:40 12/27/18 17:46 12/27/18 20:16 12/28/18 01:51 Bedside Glucose 213 217 206 200 Test 12/28/18 04:36 12/28/18 08:24 White Blood Count 11.6 H Red Blood Count 4.12 L Hemoglobin 11.7 L Hematocrit 34.7 L Mean Corpuscular 84.2 Volume Mean Corpuscular 28.4 L Hemoglobin Mean Corpuscular 33.7 Hemoglobin Concent Red Cell 12.2 Distribution Width Platelet Count 255 Mean Platelet Volume 10.6 H Immature 0.300 Granulocytes % Neutrophils % 64.6 Lymphocytes % 17.0 Monocytes % 11.4 H Eosinophils % 6.3 Basophils % 0.4 Nucleated Red Blood 0.0 Cells % Immature 0.040 H Granulocytes # Neutrophils # 7.5 Lymphocytes # 2.0 Monocytes # 1.3 H Eosinophils # 0.7 H Basophils # 0.1 Nucleated Red Blood 0.0 Cells # Sodium Level 134 L Potassium Level 4.3 Chloride Level 95 L Carbon Dioxide Level 24 Anion Gap 15 H Blood Urea Nitrogen 14 Creatinine 0.41 L Est Glomerular > 60 Filtrat Rate mL/min Glucose Level 206 Calcium Level 8.9 Phosphorus Level 3.1 Magnesium Level 2.0 Bedside Glucose 204 Medications Medication Current Medications IV Flush (NS 3 ml) 3 ml PER PROTOCOL IV ; Start 12/25/18 at 00:00 Acetaminophen (Tylenol Tab) 650 mg Q6H PRN PO .PAIN 1-3 OR TEMP; Start 12/25/18 at 00:00 Acetaminophen/ Hydrocodone Bitart ([place] (5/325)) 1 tab Q6H PRN PO .MOD PAIN 4- 6 Last administered on 12/25/18at 08:46; Admin Dose 1 TAB; Start 12/25/18 at 00:00 Heparin Sodium (Porcine) (Heparin (5000 Units/1ml)) 5,000 unit Q12 SC Last adm inistered on 12/27/18at 09:35; Admin Dose 5,000 UNIT; Start 12/25/18 at 09:00; Status Hold Albuterol/ Ipratropium (Duoneb) 3 ml Q2H RESP THERAPY PRN HHN SHORTNESS OF BREATH; Start 12/25/18 at 00:00 Atorvastatin Calcium (Lipitor) 40 mg QHS PO Last administered on 12/27/18 20:17; Admin Dose 40 MG; Start 12/25/18 at 21:00 Lisinopril (Zestril) 10 mg DAILY PO Last administered on 12/27/18 09:35; Admin Dose 10 MG; Start 12/25/18 at 09:00 Metoprolol Tartrate (Lopressor) 12.5 mg BID PO Last administered on 12/27/18 20:17; Admin Dose 12.5 MG; Start 12/25/18 at 09:00 Diagnostic Test (Pha) (Accu-Chek) 1 ea 02 XX Last administered on 12/28/18at 02:00; Admin Dose 1 EA; Start 12/26/18 at 02:00 Insulin Aspart (Novolog Insulin Pen) NOVOLOG *MILD* ALGORITHM WITH MEALS BEDTIME SC Last administered on 12/27/18 20:20; Admin Dose 1 UNIT; Start 12/25/18 at 11:40 Hydralazine HCl (Apresoline) 10 mg Q4H PRN IV sbp >160; Start 12/25/18 at 09:30 Dextrose/Sodium Chloride 1,000 ml @ 100 mls/hr Q10H IV ; Start 12/25/18 at 09:30 Miscellaneous Information 1 ea NOTE XX ; Start 12/25/18 at 09:30 Glucose (Glutose) 15 gm Q15M PRN PO DECREASED GLUCOSE; Start 12/25/18 at 09:30 Glucose (Glutose) 22.5 gm Q15M PRN PO DECREASED GLUCOSE; Start 12/25/18 at 09:30 Dextrose (D50w Syringe) 25 ml Q15M PRN IV DECREASED GLUCOSE; Start 12/25/18 at 09:30 Dextrose (D50w Syringe) 50 ml Q15M PRN IV DECREASED GLUCOSE; Start 12/25/18 at 09:30 Glucagon (Glucagen) 1 mg Q15M PRN IM DECREASED GLUCOSE; Start 12/25/18 at 09:30 Glucose (Glutose) 15 gm Q15M PRN BUCCAL DECREASED GLUCOSE; Start 12/25/18 at 09:30 Morphine Sulfate (morphine) 1 mg Q4H PRN IV SEVERE PAIN LEVEL 7-10 Last administered on 12/26/18at 18:02; Admin Dose 1 MG; Start 12/26/18 at 15:00 Tramadol HCl (Ultram) 50 mg Q6H PRN PO MODERATE PAIN LEVEL 4-6 Last administered on 12/27/18at 15:27; Admin Dose 50 MG; Start 12/27/18 at 15:00 EDY FOWLER MD Dec 28, 2018 09:44
[2018-12-28] MEDS: LISINOPRIL 10 MG TAB PO SCH (10:52)
[2018-12-28] MEDS: INSULIN ASPART [NOVOLOG] 3 ML PEN SC SCH ×4 (10:52→20:34)
[2018-12-28] MEDS: METOPROLOL 25 MG TAB PO SCH ×2 (10:53→21:00)
[2018-12-28] MEDS: traMADol 50 MG TAB PO PRN (10:55)
[2018-12-28] MEDS: HEPARIN 5,000 UNIT/1 ML VIAL SC SCH ×2 (12:51→20:33)
[2018-12-28 14:58] VITALS: BP 131/72; PULSE 82; RESP 19
--- NOTE | 2018-12-28 17:41 | PREAC ---
Date/Time of Note Date/Time of Note DATE: 12/28/18 TIME: 17:40 Anesthesia Eval and Record Evaluation Time Pre-Procedure Interview DATE: 12/28/18 TIME: 17:40 Age 68 Sex female NPO: 8 hrs Preoperative diagnosis lateral tibial plateau fracture Planned procedure ORIF LATERAL RIGHT TIBIAL PLATEAU Past Medical History Past Medical History: Includes Cardio: Dyslipidemia Endo: Diabetes Heme: Anemia Surgery & Anesthesia Issues No known issue Meds Anticoagulation: No Beta Delaney within 24 hr: Yes Reported Medications Alendronate Sodium* (Fosamax*) 70 Mg Tablet, 70 MG PO QWED, #4 TAB 12/24/18 Ca/D3/Mag#11/Zinc/Luggage Repairer/Calvin/Bor (Calcium 600+D3 Plus Caplet) 1 Each Tablet, 1 EACH PO BID, TAB 12/24/18 Metoprolol Tartrate* (Lopressor*) 25 Mg Tab, 12.5 MG PO BID, #60 TAB 12/24/18 Metformin Hcl* (Metformin Hcl*) 1,000 Mg Tablet, 1000 MG PO WITH BREAKFAST DIN NE, #60 TAB 12/24/18 Atorvastatin* (Atorvastatin*) 40 Mg Tablet, 40 MG PO QHS, #30 TAB 12/24/18 Aspirin* (Aspirin* EC) 81 Mg Tablet.dr, 81 MG PO DAILY, TAB 12/24/18 Lisinopril* (Lisinopril*) 10 Mg Tablet, 10 MG PO DAILY, #30 TAB 12/24/18 Current Medications IV Flush (NS 3 ml) 3 ml PER PROTOCOL IV ; Start 12/25/18 at 00:00 Acetaminophen (Tylenol Tab) 650 mg Q6H PRN PO .PAIN 1-3 OR TEMP; Start 12/25/18 at 00:00 Acetaminophen/ Hydrocodone Bitart ([place] (5/325)) 1 tab Q6H PRN PO .MOD PAIN 4- 6 Last administered on 12/25/18at 08:46; Admin Dose 1 TAB; Start 12/25/18 at 00:00 Albuterol/ Ipratropium (Duoneb) 3 ml Q2H RESP THERAPY PRN HHN SHORTNESS OF BREATH; Start 12/25/18 at 00:00 Atorvastatin Calcium (Lipitor) 40 mg QHS PO Last administered on 12/27/18at 20:17; Admin Dose 40 MG; Start 12/25/18 at 21:00 Lisinopril (Zestril) 10 mg DAILY PO Last administered on 12/28/18 10:52; Admin Dose 10 MG; Start 12/25/18 at 09:00 Metoprolol Tartrate (Lopressor) 12.5 mg BID PO Last administered on 12/28/18 10:53; Admin Dose 12.5 MG; Start 12/25/18 at 09:00 Diagnostic Test (Pha) (Accu-Chek) 1 ea 02 XX Last administered on 12/28/18at 02:00; Admin Dose 1 EA; Start 12/26/18 at 02:00 Insulin Aspart (Novolog Insulin Pen) NOVOLOG *MILD* ALGORITHM WITH MEALS BEDTIME SC Last administered on 12/28/18 12:54; Admin Dose 2 UNIT; Start 12/25/18 at 11:40 Hydralazine HCl (Apresoline) 10 mg Q4H PRN IV sbp >160; Start 12/25/18 at 09:30 Miscellaneous Information 1 ea NOTE XX ; Start 12/25/18 at 09:30 Glucose (Glutose) 15 gm Q15M PRN PO DECREASED GLUCOSE; Start 12/25/18 at 09:30 Glucose (Glutose) 22.5 gm Q15M PRN PO DECREASED GLUCOSE; Start 12/25/18 at 09:30 Dextrose (D50w Syringe) 25 ml Q15M PRN IV DECREASED GLUCOSE; Start 12/25/18 at 09:30 Dextrose (D50w Syringe) 50 ml Q15M PRN IV DECREASED GLUCOSE; Start 12/25/18 at 09:30 Glucagon (Glucagen) 1 mg Q15M PRN IM DECREASED GLUCOSE; Start 12/25/18 at 09:30 Glucose (Glutose) 15 gm Q15M PRN BUCCAL DECREASED GLUCOSE; Start 12/25/18 at 09:30 Morphine Sulfate (morphine) 1 mg Q4H PRN IV SEVERE PAIN LEVEL 7-10 Last administered on 12/26/18at 18:02; Admin Dose 1 MG; Start 12/26/18 at 15:00 Tramadol HCl (Ultram) 50 mg Q6H PRN PO MODERATE PAIN LEVEL 4-6 Last admini stered on 12/28/18at 10:55; Admin Dose 50 MG; Start 12/27/18 at 15:00 Quetiapine Fumarate (Seroquel) 12.5 mg QHS PO ; Start 12/28/18 at 21:00 Insulin Glargine (Lantus) 5 units DAILY@2000 SC ; Start 12/28/18 at 20:00 Dextrose/Sodium Chloride 1,000 ml @ 60 mls/hr [id number] IV ; Start 12/29/18 at 00:05 Heparin Sodium (Porcine) (Heparin (5000 Units/1ml)) 5,000 unit Q12 SC Last administered on 12/28/18at 12:51; Admin Dose 5,000 UNIT; Start 12/28/18 at 12:30 Meds reviewed: Yes Allergies Coded Allergies: No Known Allergy (Unverified , 12/24/18) Allergies Reviewed: Yes Labs/Studies Labs Reviewed: Reviewed by anesthesiologist Result Diagram: 12/28/18 0436 12/28/18 0436 Laboratory Tests 12/28/18 04:36 test: N/A Studies: ECG (NSR incomplete RBBB), CXR (Mild atherosclerosis of the thoracic aorta.), 2D Echo (EF 60%) Pre-procedure Exam Last vitals Vital Signs Date Temp Pulse Resp B/P (MAP) Pulse Ox O2 O2 Flow FiO2 Time Delivery Rate 12/28/18 97.2 82 19 131/72 96 14:58 (91) 12/25/18 Room Air 16:30 Airway: Adequate mouth opening Mallampati: Mallampati II Teeth: Normal Lung: Normal Heart: Normal ASA Physical Status ASA physical status: 2 Emergency: None Planned Anesthetic General/MAC: ETT Pre-operative Attestations Prior to commencing anesthesia and surgery, the patient was re-evaluated, there was verification of: *The patient's identity *The results of appropriate recent lab work and preoperative vital signs *The above evaluation not changing prior to induction *Anesthetic plan, risk benefits, alternative and complications discussed with patient/family; questions answered; patient/family understands, accepts and wishes to proceed. YELENA GOMEZ Dec 28, 2018 17:41
[2018-12-28 19:45] VITALS: BP 107/57; PULSE 96; RESP 18
--- NOTE | 2018-12-28 20:33 | CONS ---
Consultation Date/Type/Reason Admit Date/Time Dec 24, 2018 at 19:49 Initial Consult Date Date/Time of Note DATE: 12/28/18 TIME: 20:33 Exam/Review of Systems Exam Vitals Vital Signs Date Temp Pulse Resp B/P (MAP) Pulse Ox O2 O2 Flow FiO2 Time Delivery Rate 12/28/18 97.8 96 18 107/57 97 19:45 (74) 12/25/18 Room Air 16:30 Intake and Output 12/27/18 12/27/18 12/28/18 1515:00 23:00 07:00 OutputOutput Total 1000 ml 1000 ml BalanceBalance -1000 ml -1000 ml Results Result Diagram: 12/28/18 0436 12/28/18 0436 Results 24hrs Laboratory Tests Test 12/28/18 01:51 12/28/18 04:36 12/28/18 08:24 12/28/18 12:49 Bedside Glucose 200 204 213 White Blood Count 11.6 H Red Blood Count 4.12 L Hemoglobin 11.7 L Hematocrit 34.7 L Mean Corpuscular 84.2 Volume Mean Corpuscular 28.4 L Hemoglobin Mean Corpuscular 33.7 Hemoglobin Concent Red Cell 12.2 Distribution Width Platelet Count 255 Mean Platelet Volume 10.6 H Immature 0.300 Granulocytes % Neutrophils % 64.6 Lymphocytes % 17.0 Monocytes % 11.4 H Eosinophils % 6.3 Basophils % 0.4 Nucleated Red Blood 0.0 Cells % Immature 0.040 H Granulocytes # Neutrophils # 7.5 Lymphocytes # 2.0 Monocytes # 1.3 H Eosinophils # 0.7 H Basophils # 0.1 Nucleated Red Blood 0.0 Cells # Sodium Level 134 L Potassium Level 4.3 Chloride Level 95 L Carbon Dioxide Level 24 Anion Gap 15 H Blood Urea Nitrogen 14 Creatinine 0.41 L Est Glomerular > 60 Filtrat Rate mL/min Glucose Level 206 Calcium Level 8.9 Phosphorus Level 3.1 Magnesium Level 2.0 Test 12/28/18 18:01 Bedside Glucose 188 Medications Medication Current Medications IV Flush (NS 3 ml) 3 ml PER PROTOCOL IV ; Start 12/25/18 at 00:00 Acetaminophen (Tylenol Tab) 650 mg Q6H PRN PO .PAIN 1-3 OR TEMP; Start 12/25/18 at 00:00 Acetaminophen/ Hydrocodone Bitart ([place] (5/325)) 1 tab Q6H PRN PO .MOD PAIN 4- 6 Last administered on 12/25/18at 08:46; Admin Dose 1 TAB; Start 12/25/18 at 00:00 Albuterol/ Ipratropium (Duoneb) 3 ml Q2H RESP THERAPY PRN HHN SHORTNESS OF BREATH; Start 12/25/18 at 00:00 Atorvastatin Calcium (Lipitor) 40 mg QHS PO Last administered on 12/27/18at 20:17; Admin Dose 40 MG; Start 12/25/18 at 21:00 Lisinopril (Zestril) 10 mg DAILY PO Last administered on 12/28/18at 10:52; Admin Dose 10 MG; Start 12/25/18 at 09:00 Metoprolol Tartrate (Lopressor) 12.5 mg BID PO Last administered on 12/28/18at 10:53; Admin Dose 12.5 MG; Start 12/25/18 at 09:00 Diagnostic Test (Pha) (Accu-Chek) 1 ea 02 XX Last administered on 12/28/18at 02:00; Admin Dose 1 EA; Start 12/26/18 at 02:00 Insulin Aspart (Novolog Insulin Pen) NOVOLOG *MILD* ALGORITHM WITH MEALS BEDTIME SC Last administered on 12/28/18at 18:03; Admin Dose 2 UNIT; Start 12/25/18 at 11:40 Hydralazine HCl (Apresoline) 10 mg Q4H PRN IV sbp >160; Start 12/25/18 at 09:30 Miscellaneous Information 1 ea NOTE XX ; Start 12/25/18 at 09:30 Glucose (Glutose) 15 gm Q15M PRN PO DECREASED GLUCOSE; Start 12/25/18 at 09:30 Glucose (Glutose) 22.5 gm Q15M PRN PO DECREASED GLUCOSE; Start 12/25/18 at 09:30 Dextrose (D50w Syringe) 25 ml Q15M PRN IV DECREASED GLUCOSE; Start 12/25/18 at 09:30 Dextrose (D50w Syringe) 50 ml Q15M PRN IV DECREASED GLUCOSE; Start 12/25/18 at 09:30 Glucagon (Glucagen) 1 mg Q15M PRN IM DECREASED GLUCOSE; Start 12/25/18 at 09:30 Glucose (Glutose) 15 gm Q15M PRN BUCCAL DECREASED GLUCOSE; Start 12/25/18 at 09:30 Morphine Sulfate (morphine) 1 mg Q4H PRN IV SEVERE PAIN LEVEL 7-10 Last administered on 12/26/18at 18:02; Admin Dose 1 MG; Start 12/26/18 at 15:00 Tramadol HCl (Ultram) 50 mg Q6H PRN PO MODERATE PAIN LEVEL 4-6 Last administered on 12/28/18at 10:55; Admin Dose 50 MG; Start 12/27/18 at 15:00 Quetiapine Fumarate (Seroquel) 12.5 mg QHS PO ; Start 12/28/18 at 21:00 Insulin Glargine (Lantus) 5 units DAILY@2000 SC ; Start 12/28/18 at 20:00 Dextrose/Sodium Chloride 1,000 ml @ 60 mls/hr [id number] IV ; Start 12/29/18 at 00:05 Heparin Sodium (Porcine) (Heparin (5000 Units/1ml)) 5,000 unit Q12 SC Last administered on 12/28/18at 12:51; Admin Dose 5,000 UNIT; Start 12/28/18 at 12:30 DONNA SMART Dec 28, 2018 20:33
[2018-12-28] MEDS: INSULIN GLARGINE [LANTus] (100 UNITS/ML) SYG SC SCH (20:36)
[2018-12-28] MEDS: QUETIAPINE 25 MG TAB PO SCH (21:00)
[2018-12-28] MEDS: ATORVASTATIN 40 MG TAB PO SCH (21:00)
[2018-12-29] VITALS (19 sets, daily range): BP systolic 104–136; BP diastolic 52–77; PULSE 86–116; RESP 10–20
[2018-12-29] MEDS: ACETAMINOPHEN 325 MG TAB PO PRN (00:19)
[2018-12-29] MEDS: DEXTROSE 5%-0.45% NACL 1,000 ML IV SCH ×2 (00:26→16:31)
[2018-12-29] MEDS: ACCU-CHEK XX SCH (01:15)
[2018-12-29] MEDS: HEPARIN 5,000 UNIT/1 ML VIAL SC SCH ×2 (08:22→23:46)
[2018-12-29] MEDS: LISINOPRIL 10 MG TAB PO SCH (09:00)
--- NOTE | 2018-12-29 09:08 | PN ---
Date/Time of Note Date/Time of Note DATE: 12/29/18 TIME: 09:08 Assessment/Plan VTE Prophylaxis Risk score (from Nsg)>0 risk: 9 SCD applied (from Nsg): Yes Pharmacological prophylaxis: heparin Lines/Catheters IV Catheter Type (from Nrsg): Saline Lock Urinary Cath still in place: Yes Reason Cath still needed: terminal illness/intractable pain Assessment/Plan Assessment/Plan 1. Right tibial plateau and left fourth metatarsal fracture - Ortho on board and plans for ORIF today - Xray LE noted - Cardiology input appreciated and ECHO/EKG reviewed. Continue current medications 2. Hypertension - Continue home meds 3. Diabetes - Insulin while in house - on metformin as outpatient 4. Dyslipidemia - Continue home meds 5. Mild Anemia - Monitor 6. Disposition - ortho intervention planned for today. PT/OT when cleared by Ortho for discharge planning Result Diagram: 12/29/18 0455 12/29/18 0455 Results 24hrs Laboratory Tests Test 12/28/18 12:49 12/28/18 18:01 12/28/18 20:29 12/29/18 01:14 Bedside Glucose 213 188 183 176 Test 12/29/18 04:55 White Blood Count 9.5 Red Blood Count 3.86 L Hemoglobin 11.1 L Hematocrit 33.0 L Mean Corpuscular 85.5 Volume Mean Corpuscular 28.8 L Hemoglobin Mean Corpuscular 33.6 Hemoglobin Concent Red Cell 12.6 Distribution Width Platelet Count 261 Mean Platelet Volume 10.2 Immature 0.300 Granulocytes % Neutrophils % 50.6 Lymphocytes % 24.8 Monocytes % 10.5 Eosinophils % 13.1 H Basophils % 0.7 Nucleated Red Blood 0.0 Cells % Immature 0.030 Granulocytes # Neutrophils # 4.8 Lymphocytes # 2.4 Monocytes # 1.0 H Eosinophils # 1.2 H Basophils # 0.1 Nucleated Red Blood 0.0 Cells # Sodium Level 133 L Potassium Level 4.3 Chloride Level 95 L Carbon Dioxide Level 23 Anion Gap 15 H Blood Urea Nitrogen 18 Creatinine 0.54 Glucose Level 200 Calcium Level 8.7 Phosphorus Level 3.8 Magnesium Level 2.3 Albumin 4.0 Subjective 24 Hr Interval Summary Free Text/Dictation Patient complaining of pain in right leg but denies any other issues. Per family at bedside, no longer experiencing confusion. Exam/Review of Systems Exam Vitals Vital Signs Date Temp Pulse Resp B/P (MAP) Pulse Ox O2 O2 Flow FiO2 Time Delivery Rate 12/29/18 98.0 96 16 123/56 98 Room Air 07:28 (78) 12/28/18 21 21:45 Intake and Output 12/28/18 12/28/18 12/29/18 1515:00 23:00 07:00 IntakeIntake Total 220 ml OutputOutput Total 850 ml BalanceBalance 220 ml -850 ml Exam General: Patient is laying in bed and answers questions appropriately Respiratory: Clear to auscultation bilaterally. no wheezing or rhonchi Cardiovascular: regular rate and rhythm, no obvious murmurs Gastrointestinal: non-tender to palpation, bowel sounds heard. Ext: non mobilized right LE Results Results 24hrs Laboratory Tests Test 12/28/18 12:49 12/28/18 18:01 12/28/18 20:29 12/29/18 01:14 Bedside Glucose 213 188 183 176 Test 12/29/18 04:55 White Blood Count 9.5 Red Blood Count 3.86 L Hemoglobin 11.1 L Hematocrit 33.0 L Mean Corpuscular 85.5 Volume Mean Corpuscular 28.8 L Hemoglobin Mean Corpuscular 33.6 Hemoglobin Concent Red Cell 12.6 Distribution Width Platelet Count 261 Mean Platelet Volume 10.2 Immature 0.300 Granulocytes % Neutrophils % 50.6 Lymphocytes % 24.8 Monocytes % 10.5 Eosinophils % 13.1 H Basophils % 0.7 Nucleated Red Blood 0.0 Cells % Immature 0.030 Granulocytes # Neutrophils # 4.8 Lymphocytes # 2.4 Monocytes # 1.0 H Eosinophils # 1.2 H Basophils # 0.1 Nucleated Red Blood 0.0 Cells # Sodium Level 133 L Potassium Level 4.3 Chloride Level 95 L Carbon Dioxide Level 23 Anion Gap 15 H Blood Urea Nitrogen 18 Creatinine 0.54 Glucose Level 200 Calcium Level 8.7 Phosphorus Level 3.8 Magnesium Level 2.3 Albumin 4.0 Medications Medication Current Medications IV Flush (NS 3 ml) 3 ml PER PROTOCOL IV ; Start 12/25/18 at 00:00 Acetaminophen (Tylenol Tab) 650 mg Q6H PRN PO .PAIN 1-3 OR TEMP Last administered on 12/29/18at 00:19; Admin Dose 650 MG; Start 12/25/18 at 00:00 Acetaminophen/ Hydrocodone Bitart ([place] (5/325)) 1 tab Q6H PRN PO .MOD PAIN 4- 6 Last administered on 12/25/18at 08:46; Admin Dose 1 TAB; Start 12/25/18 at 00:00 Albuterol/ Ipratropium (Duoneb) 3 ml Q2H RESP THERAPY PRN HHN SHORTNESS OF BREATH; Start 12/25/18 at 00:00 Atorvastatin Calcium (Lipitor) 40 mg QHS PO Last administered on 12/27/18at 20:17; Admin Dose 40 MG; Start 12/25/18 at 21:00 Lisinopril (Zestril) 10 mg DAILY PO Last administered on 12/28/18at 10:52; Admin Dose 10 MG; Start 12/25/18 at 09:00 Metoprolol Tartrate (Lopressor) 12.5 mg BID PO Last administered on 12/28/18at 10:53; Admin Dose 12.5 MG; Start 12/25/18 at 09:00 Diagnostic Test (Pha) (Accu-Chek) 1 ea 02 XX Last administered on 12/29/18at 01:15; Admin Dose 1 EA; Start 12/26/18 at 02:00 Insulin Aspart (Novolog Insulin Pen) NOVOLOG *MILD* ALGORITHM WITH MEALS BEDTIME SC Last administered on 12/28/18at 20:34; Admin Dose 1 UNIT; Start 12/25/18 at 11:40 Hydralazine HCl (Apresoline) 10 mg Q4H PRN IV sbp >160; Start 12/25/18 at 09:30 Miscellaneous Information 1 ea NOTE XX ; Start 12/25/18 at 09:30 Glucose (Glutose) 15 gm Q15M PRN PO DECREASED GLUCOSE; Start 12/25/18 at 09:30 Glucose (Glutose) 22.5 gm Q15M PRN PO DECREASED GLUCOSE; Start 12/25/18 at 09:30 Dextrose (D50w Syringe) 25 ml Q15M PRN IV DECREASED GLUCOSE; Start 12/25/18 at 09:30 Dextrose (D50w Syringe) 50 ml Q15M PRN IV DECREASED GLUCOSE; Start 12/25/18 at 09:30 Glucagon (Glucagen) 1 mg Q15M PRN IM DECREASED GLUCOSE; Start 12/25/18 at 09:30 Glucose (Glutose) 15 gm Q15M PRN BUCCAL DECREASED GLUCOSE; Start 12/25/18 at 09:30 Morphine Sulfate (morphine) 1 mg Q4H PRN IV SEVERE PAIN LEVEL 7-10 Last administered on 12/26/18 18:02; Admin Dose 1 MG; Start 12/26/18 at 15:00 Tramadol HCl (Ultram) 50 mg Q6H PRN PO MODERATE PAIN LEVEL 4-6 Last administered on 12/28/18 10:55; Admin Dose 50 MG; Start 12/27/18 at 15:00 Quetiapine Fumarate (Seroquel) 12.5 mg QHS PO ; Start 12/28/18 at 21:00 Insulin Glargine (Lantus) 5 units DAILY@2000 SC Last administered on 12/28/18at 20:36; Admin Dose 5 UNITS; Start 12/28/18 at 20:00 Dextrose/Sodium Chloride 1,000 ml @ 60 mls/hr [id number] IV Last administered on 12/29/18 00:26; Admin Dose 60 MLS/HR; Start 12/29/18 at 00:05 Heparin Sodium (Porcine) (Heparin (5000 Units/1ml)) 5,000 unit Q12 SC Last administered on 12/28/18 20:33; Admin Dose 5,000 UNIT; Start 12/28/18 at 12:30 EDY FOWLER MD Dec 29, 2018 09:08
[2018-12-29] MEDS: INSULIN ASPART [NOVOLOG] 3 ML PEN SC SCH ×4 (09:12→23:44)
[2018-12-29] MEDS: METOPROLOL 25 MG TAB PO SCH ×2 (09:32→23:45)
[2018-12-29] MEDS: ACETAMINOPHEN 1000MG/100ML IV 100 ML IVPB PRN ×2 (15:38→23:58)
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
--- NOTE | 2018-12-29 17:50 | HPN ---
Date/Time of Note Date/Time of Note DATE: 12/29/18 TIME: 17:49 Interval H&P Admission Note Pt. seen H&P reviewed: No system changes JOVAN CHAUHAN MD Dec 29, 2018 17:50
[2018-12-29] MEDS ORDERED: FENTAnyl 50 MCG/ML VIAL ONE ×2 (19:19→22:05)
[2018-12-29] MEDS ORDERED: POLYMYXIN/BACITRACIN 1L IRRIG ONE (20:24)
[2018-12-29] MEDS ORDERED: SUCCINYLCHOLINE CHLORIDE 100 MG/5 ML SYG IV ONE (21:32)
[2018-12-29] MEDS ORDERED: ROCURONIUM 50 MG INJ ONE (21:33)
[2018-12-29] MEDS ORDERED: SUGAMMADEX SODIUM 200 MG/2 ML VIAL IV ONE (21:33)
[2018-12-29] MEDS ORDERED: LIDOCAINE 100 MG SYRINGE ONE (21:33)
[2018-12-29] MEDS ORDERED: CEFAZOLIN 1 GM INJ ONE (21:33)
[2018-12-29] MEDS ORDERED: PROPOFOL 20 ML ONE (21:33)
[2018-12-29] MEDS ORDERED: SOD CHLORIDE 0.9% 1,000 ML IV SCH (21:56)
[2018-12-29] MEDS ORDERED: ONDANSETRON 4 MG INJ ONE (21:59)
[2018-12-29] MEDS ORDERED: HYDROCODONE/APAP (5/325) TAB PO PRN (22:00)
[2018-12-29] MEDS ORDERED: morphine 4 MG/ML VIAL IV PRN (22:00)
[2018-12-29] MEDS ORDERED: NACL 0.9% 3 ML SYG IV SCH (22:00)
[2018-12-29] MEDS ORDERED: CEFAZOLIN 2 GM/50 ML (PMX) 50 ML IVPB SCH (22:00)
[2018-12-29] MEDS ORDERED: NALOXONE (0.4 MG/ML) INJ IV PRN (22:00)
[2018-12-29] MEDS: FENTAnyl 50 MCG/ML VIAL IV PRN ×2 (22:21→22:28)
--- NOTE | 2018-12-29 22:22 | SIPON ---
Date/Time of Note Date/Time of Note DATE: 12/29/18 TIME: 22:16 Operative Report Preoperative Diagnosis lateral tibial plateau fracture of Rt. knee Postoperative Diagnosis same Operation/Procedure Performed O.R.I.F. of lateral tibial plateau fracture of Rt. 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
[2018-12-29] MEDS ORDERED: FENTAnyl 50 MCG/ML VIAL IV PRN (22:30)
[2018-12-29] MEDS ORDERED: DIPHENHYDRAMINE 50 MG INJ IV PRN (22:30)
[2018-12-29] MEDS ORDERED: ONDANSETRON 4 MG INJ IV PRN (22:30)
[2018-12-29] MEDS ORDERED: HYDROmorphONE 1 MG/5 ML IV SYRINGE IV PRN ×2 (22:30)
[2018-12-29] MEDS ORDERED: MEPERIDINE 25 MG INJ IV PRN (22:30)
[2018-12-29] MEDS ORDERED: LABETALOL HCL 20MG INJ IV PRN (22:30)
[2018-12-29] MEDS ORDERED: METOCLOPRAMIDE 10 MG INJ IV PRN (22:30)
[2018-12-29] MEDS: INSULIN GLARGINE [LANTus] (100 UNITS/ML) SYG SC SCH (23:43)
[2018-12-29] MEDS: QUETIAPINE 25 MG TAB PO SCH (23:46)
[2018-12-29] MEDS: ATORVASTATIN 40 MG TAB PO SCH (23:46)
[2018-12-30] VITALS (8 sets, daily range): BP systolic 113–138; BP diastolic 55–63; PULSE 84–92; RESP 18–20
--- NOTE | 2018-12-30 01:33 | OPR ---
DATE OF OPERATION: 12/29/2018 PREOPERATIVE DIAGNOSIS: Lateral tibial plateau fracture of the right knee with possible depression. POSTOPERATIVE DIAGNOSIS: Lateral tibial plateau fracture of the right knee with minimal depression. PROCEDURE PERFORMED: Open reduction and internal fixation of the lateral tibial plateau fracture. ANESTHESIA: General anesthesia. SURGEON: Alonso Chauhan MD DESCRIPTION OF PROCEDURE AND FINDINGS: Under anesthesia, the patient was placed in supine position u andrew the operating table. Usual prep and drape was done exposing the right knee. A tourniquet was pl aced over the proximal portion of the right thigh and was inflated up to 300 mmHg prior to the proced ure. The lateral aspect of the right knee was approached through the longitudinal incision made slightly l ateral to the midline. By blunt and sharp dissection, the lateral tibial plateau was exposed. Inspe ction revealed that there indeed was a fracture; however, the depression was minimal. After aligning the lateral tibial plateau properly, the internal fixation was carried out using special plate for t he lateral tibial plateau. At the end of the procedure, the alignment of the fracture was satisfacto ry and position of the fixation device was proper. After irrigation and hemostasis, closure of the i ncision was carried out using 2-0 Vicryl for synovium and 0 Vicryl for muscle and fascia. Further cl osure was carried out with 2-0 Vicryl for the subcutaneous tissues and final skin closure was carried out with skin medina. The usual sterile pressure dressings were applied. The patient tolerated the entire procedure very well and was sent to the recovery room in excellent c ondition. Dictated By: ALONSO CHAUHAN MD IK/NTS Conf#: [id number] DID#: [id number] CC: IFTIKHAR TERAN MD;*EndCC*
[2018-12-30] MEDS: ACCU-CHEK XX SCH (02:51)
[2018-12-30] MEDS: traMADol 50 MG TAB PO PRN (05:27)
--- NOTE | 2018-12-30 08:21 | PAC ---
Date/Time of Note Date/Time of Note DATE: 12/30/18 TIME: 08:21 Post-Anesthesia Notes Post-Anesthesia Note Last documented vital signs Vital Signs Date Temp Pulse Resp B/P (MAP) Pulse Ox O2 O2 Flow FiO2 Time Delivery Rate 12/30/18 98.3 91 18 136/60 96 Room Air 08:06 (85) 12/30/18 2.0 03:00 12/28/18 21 21:45 Activity: WNL Respiratory function: WNL Cardiovascular function: WNL Mental status: Baseline Pain reasonably controlled: Yes Hydration appropriate: Yes Nausea/Vomiting absent: Yes MJ HUFF Dec 30, 2018 08:21
[2018-12-30] MEDS: LISINOPRIL 10 MG TAB PO SCH (09:00)
[2018-12-30] MEDS: METOPROLOL 25 MG TAB PO SCH ×2 (09:03→20:55)
[2018-12-30] MEDS: ACETAMINOPHEN 325 MG TAB PO PRN ×2 (09:04→17:41)
[2018-12-30] MEDS: INSULIN ASPART [NOVOLOG] 3 ML PEN SC SCH ×4 (09:07→20:50)
[2018-12-30] MEDS: ENOXAPARIN 40 MG/0.4 ML SYG SC SCH (09:11)
[2018-12-30] MEDS: KETOROLAC 15 MG INJ IV PRN ×2 (11:33→17:42)
[2018-12-30] MEDS: CEFAZOLIN 2 GM/50 ML (PMX) 50 ML IVPB SCH ×2 (11:47→21:49)
[2018-12-30] MEDS: POLYETHYLENE GLYCOL 17 GM PACKET PO SCH (14:45)
--- NOTE | 2018-12-30 14:53 | PN ---
Date/Time of Note Date/Time of Note DATE: 12/30/18 TIME: 14:32 Assessment/Plan VTE Prophylaxis Risk score (from Nsg)>0 risk: 10 SCD applied (from Nsg): Yes Pharmacological prophylaxis: LMWH Lines/Catheters IV Catheter Type (from Nrsg): Peripheral IV Urinary Cath still in place: Yes Reason Cath still needed: other (indicate) Assessment/Plan Assessment/Plan 1. s/p Open reduction and internal fixation of the lateral tibial plateau fracture, follow up with ortho and PT 2. Left fourth metatarsal fracture, follow up with ortho 3. Hypertension, controlled 4. Diabetes, on insulin 5. Dyslipidemia, on lipitor 6. Mild Anemia, stable 7. DVT prophylaxis: lovenox Result Diagram: 12/30/18 0456 12/30/18 0456 Results 24hrs Laboratory Tests Test 12/29/18 23:33 12/30/18 01:58 12/30/18 04:56 12/30/18 08:53 Bedside Glucose 215 247 H 177 White Blood Count 8.4 Red Blood Count 3.58 L Hemoglobin 10.3 L Hematocrit 31.3 L Mean Corpuscular 87.4 Volume Mean Corpuscular 28.8 L Hemoglobin Mean Corpuscular 32.9 Hemoglobin Concent Red Cell 12.5 Distribution Width Platelet Count 279 Mean Platelet Volume 10.2 Immature 0.200 Granulocytes % Neutrophils % 77.1 H Lymphocytes % 9.7 L Monocytes % 11.1 H Eosinophils % 1.4 Basophils % 0.5 Nucleated Red Blood 0.0 Cells % Immature 0.020 Granulocytes # Neutrophils # 6.5 Lymphocytes # 0.8 Monocytes # 0.9 Eosinophils # 0.1 Basophils # 0.0 Nucleated Red Blood 0.0 Cells # Sodium Level 136 Potassium Level 4.6 Chloride Level 105 # Carbon Dioxide Level 20 L Anion Gap 11 Blood Urea Nitrogen 15 Creatinine 0.41 L Glucose Level 203 Calcium Level 8.0 L Phosphorus Level 3.7 Magnesium Level 2.2 Albumin 3.7 Test 12/30/18 12:48 Bedside Glucose 208 Subjective 24 Hr Interval Summary Free Text/Dictation right knee pain Exam/Review of Systems Exam Vitals Vital Signs Date Temp Pulse Resp B/P (MAP) Pulse Ox O2 O2 Flow FiO2 Time Delivery Rate 12/30/18 98.3 91 18 136/60 96 Room Air 08:06 (85) 12/30/18 2.0 03:00 12/28/18 21 21:45 Intake and Output 12/29/18 12/29/18 12/30/18 1515:00 23:00 07:00 IntakeIntake Total 2160 ml 670 ml OutputOutput Total 950 ml 110 ml BalanceBalance 1210 ml 560 ml Constitutional: alert, oriented, well developed Head: normocephalic, atraumatic Eyes: nl conjunctiva, EOMI, nl lids, PERRL ENMT: nl external ears & nose, nl lips & teeth, nl nasal mucosa & septum Neck: supple, non-tender Respiratory: clear to auscultation, normal air movement; No congested cough, No crackles/rales, No diminished breath sounds, No intercostal retraction, No labored breathing, No respirations, No tactile fremitus, No wheezing, No other Cardiovascular: regular rate and rhythm, nl pulses; No bruits, No diastolic murmur, No edema, No gallop, No irregular rhythm, No jugular venous distention (JVD), No murmurs/extra sounds, No rub, No systolic murmur, No S3, No S4, No other Gastrointestinal: soft, nl liver, spleen, non-tender Extremities: other (right knee pain) Neurological: EARTH MOVING TECHNICIAN II-XII intact, nl mental status, nl speech, nl strength Results Results 24hrs Laboratory Tests Test 12/29/18 23:33 12/30/18 01:58 12/30/18 04:56 12/30/18 08:53 Bedside Glucose 215 247 H 177 White Blood Count 8.4 Red Blood Count 3.58 L Hemoglobin 10.3 L Hematocrit 31.3 L Mean Corpuscular 87.4 Volume Mean Corpuscular 28.8 L Hemoglobin Mean Corpuscular 32.9 Hemoglobin Concent Red Cell 12.5 Distribution Width Platelet Count 279 Mean Platelet Volume 10.2 Immature 0.200 Granulocytes % Neutrophils % 77.1 H Lymphocytes % 9.7 L Monocytes % 11.1 H Eosinophils % 1.4 Basophils % 0.5 Nucleated Red Blood 0.0 Cells % Immature 0.020 Granulocytes # Neutrophils # 6.5 Lymphocytes # 0.8 Monocytes # 0.9 Eosinophils # 0.1 Basophils # 0.0 Nucleated Red Blood 0.0 Cells # Sodium Level 136 Potassium Level 4.6 Chloride Level 105 # Carbon Dioxide Level 20 L Anion Gap 11 Blood Urea Nitrogen 15 Creatinine 0.41 L Glucose Level 203 Calcium Level 8.0 L Phosphorus Level 3.7 Magnesium Level 2.2 Albumin 3.7 Test 12/30/18 12:48 Bedside Glucose 208 Medications Medication Current Medications IV Flush (NS 3 ml) 3 ml PER PROTOCOL IV ; Start 12/25/18 at 00:00 Acetaminophen (Tylenol Tab) 650 mg Q6H PRN PO .PAIN 1-3 OR TEMP Last administered on 12/30/18at 09:04; Admin Dose 650 MG; Start 12/25/18 at 00:00 Albuterol/ Ipratropium (Duoneb) 3 ml Q2H RESP THERAPY PRN HHN SHORTNESS OF BREATH; Start 12/25/18 at 00:00 Atorvastatin Calcium (Lipitor) 40 mg QHS PO Last administered on 12/29/18at 23:46; Admin Dose 40 MG; Start 12/25/18 at 21:00 Lisinopril (Zestril) 10 mg DAILY PO Last administered on 12/30/18at 09:00; Admin Dose 10 MG; Start 12/25/18 at 09:00 Metoprolol Tartrate (Lopressor) 12.5 mg BID PO Last administered on 12/30/18at 09:03; Admin Dose 12.5 MG; Start 12/25/18 at 09:00 Diagnostic Test (Pha) (Accu-Chek) 1 ea 02 XX Last administered on 12/30/18at 02:51; Admin Dose 1 EA; Start 12/26/18 at 02:00 Hydralazine HCl (Apresoline) 10 mg Q4H PRN IV sbp >160; Start 12/25/18 at 09:30 Miscellaneous Information 1 ea NOTE XX ; Start 12/25/18 at 09:30 Glucose (Glutose) 15 gm Q15M PRN PO DECREASED GLUCOSE; Start 12/25/18 at 09:30 Glucose (Glutose) 22.5 gm Q15M PRN PO DECREASED GLUCOSE; Start 12/25/18 at 09:30 Dextrose (D50w Syringe) 25 ml Q15M PRN IV DECREASED GLUCOSE; Start 12/25/18 at 09:30 Dextrose (D50w Syringe) 50 ml Q15M PRN IV DECREASED GLUCOSE; Start 12/25/18 at 09:30 Glucagon (Glucagen) 1 mg Q15M PRN IM DECREASED GLUCOSE; Start 12/25/18 at 09:30 Glucose (Glutose) 15 gm Q15M PRN BUCCAL DECREASED GLUCOSE; Start 12/25/18 at 09:30 Quetiapine Fumarate (Seroquel) 12.5 mg QHS PO Last administered on 12/29/18 23:46; Admin Dose 12.5 MG; Start 12/28/18 at 21:00 Insulin Glargine (Lantus) 5 units DAILY@2000 SC Last administered on 12/29/18 23:43; Admin Dose 5 UNITS; Start 12/28/18 at 20:00 Dextrose/Sodium Chloride 1,000 ml @ 60 mls/hr [id number] IV Last administered on 12/29/18 16:31; Admin Dose 60 MLS/HR; Start 12/29/18 at 00:05 Acetaminophen 100 ml @ 400 mls/hr Q6H PRN IVPB pain Last administered on 12/29/18 23:58; Admin Dose 400 MLS/HR; Start 12/29/18 at 15:30; Stop 12/30/18 at 15:29 IV Flush (NS 3 ml) 3 ml PER PROTOCOL IV ; Start 12/29/18 at 22:00 Naloxone HCl (Narcan) 0.2 mg Q2M PRN IV .RESP RATE; Start 12/29/18 at 22:00 Enoxaparin Sodium (Lovenox) 40 mg DAILY SC Last administered on 12/30/18 09:11; Admin Dose 40 MG; Start 12/30/18 at 09:00 Insulin Aspart (Novolog Insulin Pen) NOVOLOG *MILD* ALGORITHM WITH MEALS BEDTIME SC Last administered on 12/30/18 13:13; Admin Dose 2 UNIT; Start 12/30/18 at 07:50 Cefazolin Sodium/ Dextrose 50 ml @ 100 mls/hr Q8H IVPB Last administered on 12/30/18 11:47; Admin Dose 100 MLS/HR; Start 12/30/18 at 11:00; Stop 12/30/18 at 19:29 Ketorolac Tromethamine (Toradol) 15 mg Q6H PRN IV PAIN Last administered on 12/12 11:33; Admin Dose 15 MG; Start 12/30/18 at 10:00; Stop 01/02/19 at 09:59 Polyethylene Glycol (Miralax) 17 gm DAILY PO ; Start 12/30/18 at 13:00 KYRIE GREGG MD Dec 30, 2018 14:43
[2018-12-30] MEDS: INSULIN GLARGINE [LANTus] (100 UNITS/ML) SYG SC SCH (20:49)
[2018-12-30] MEDS: ATORVASTATIN 40 MG TAB PO SCH (20:50)
[2018-12-30] MEDS: QUETIAPINE 25 MG TAB PO SCH (20:54)
[2018-12-31 02:00] VITALS: BP 113/58; PULSE 80; RESP 18
[2018-12-31] MEDS: ACCU-CHEK XX SCH (02:28)
[2018-12-31 08:10] VITALS: BP 127/63; PULSE 105; RESP 18
[2018-12-31] MEDS: ACETAMINOPHEN 325 MG TAB PO PRN ×2 (08:39→19:44)
[2018-12-31] MEDS: LISINOPRIL 10 MG TAB PO SCH (08:40)
[2018-12-31] MEDS: METOPROLOL 25 MG TAB PO SCH ×2 (08:40→21:09)
[2018-12-31] MEDS: POLYETHYLENE GLYCOL 17 GM PACKET PO SCH (08:40)
[2018-12-31] MEDS: INSULIN ASPART [NOVOLOG] 3 ML PEN SC SCH ×4 (08:42→21:22)
[2018-12-31] MEDS: ENOXAPARIN 40 MG/0.4 ML SYG SC SCH (08:43)
[2018-12-31 13:47] VITALS: BP 155/72; PULSE 95; RESP 18
--- NOTE | 2018-12-31 14:18 | PN ---
Date/Time of Note Date/Time of Note DATE: 12/31/18 TIME: 14:16 Assessment/Plan VTE Prophylaxis Risk score (from Nsg)>0 risk: 17 SCD applied (from Nsg): Yes Pharmacological prophylaxis: LMWH Lines/Catheters IV Catheter Type (from Nrsg): Peripheral IV Urinary Cath still in place: Yes Reason Cath still needed: other (indicate) Assessment/Plan Assessment/Plan 1. s/p Open reduction and internal fixation of the lateral tibial plateau fracture, follow up with ortho and PT 2. Left fourth metatarsal fracture, follow up with ortho 3. Hypertension, controlled 4. Diabetes, on insulin 5. Dyslipidemia, on lipitor 6. Mild Anemia, stable 7. DVT prophylaxis: lovenox 8. constipation, laxatives 9. Awaiting for SNF placement Result Diagram: 12/31/1843812/31/18 0439 Results 24hrs Laboratory Tests Test 12/30/18 18:25 12/30/18 20:43 12/31/18 02:25 12/31/18 04:39 Bedside Glucose 188 207 190 White Blood Count 9.6 Red Blood Count 3.34 L Hemoglobin 9.7 L Hematocrit 28.6 L Mean Corpuscular 85.6 Volume Mean Corpuscular 29.0 Hemoglobin Mean Corpuscular 33.9 Hemoglobin Concent Red Cell 12.3 Distribution Width Platelet Count 284 Mean Platelet Volume 10.4 Immature 0.500 H Granulocytes % Neutrophils % 68.4 Lymphocytes % 14.3 L Monocytes % 11.3 H Eosinophils % 4.9 Basophils % 0.6 Nucleated Red Blood 0.0 Cells % Immature 0.050 H Granulocytes # Neutrophils # 6.6 Lymphocytes # 1.4 Monocytes # 1.1 H Eosinophils # 0.5 Basophils # 0.1 Nucleated Red Blood 0.0 Cells # Sodium Level 134 L Potassium Level 4.1 Chloride Level 103 Carbon Dioxide Level 23 Anion Gap 8 Blood Urea Nitrogen 10 Creatinine 0.43 L Est Glomerular > 60 Filtrat Rate mL/min Glucose Level 183 Calcium Level 8.2 L Test 12/31/18 08:36 12/31/18 13:02 Bedside Glucose 316 H 289 H Subjective 24 Hr Interval Summary Free Text/Dictation right knee pain Exam/Review of Systems Exam Vitals Vital Signs Date Temp Pulse Resp B/P (MAP) Pulse Ox O2 O2 Flow FiO2 Time Delivery Rate 12/31/18 98.4 95 18 155/72 99 13:47 (99) 12/30/18 Room Air 15:11 12/30/18 2.0 03:00 12/28/18 21 21:45 Intake and Output 12/30/18 12/30/18 12/31/18 1515:00 23:00 07:00 IntakeIntake Total 250 ml 50 ml OutputOutput Total 1300 ml 500 ml 400 ml BalanceBalance -1050 ml -450 ml -400 ml Constitutional: alert, oriented, well developed Head: normocephalic, atraumatic Eyes: nl conjunctiva, EOMI, nl lids ENMT: nl external ears & nose, nl lips & teeth, nl nasal mucosa & septum Neck: supple, non-tender Respiratory: clear to auscultation, normal air movement; No congested cough, No crackles/rales, No diminished breath sounds, No intercostal retraction, No labored breathing, No respirations, No tactile fremitus, No wheezing, No other Cardiovascular: regular rate and rhythm, nl pulses; No bruits, No diastolic murmur, No edema, No gallop, No irregular rhythm, No jugular venous distention (JVD), No murmurs/extra sounds, No rub, No systolic murmur, No S3, No S4, No other Gastrointestinal: soft, nl liver, spleen, non-tender Extremities: normal pulses, other (right kneee pain) Neurological: CARGO WORKER II-XII intact, nl mental status, nl speech, nl strength Results Results 24hrs Laboratory Tests Test 12/30/18 18:25 12/30/18 20:43 12/31/18 02:25 12/31/18 04:39 Bedside Glucose 188 207 190 White Blood Count 9.6 Red Blood Count 3.34 L Hemoglobin 9.7 L Hematocrit 28.6 L Mean Corpuscular 85.6 Volume Mean Corpuscular 29.0 Hemoglobin Mean Corpuscular 33.9 Hemoglobin Concent Red Cell 12.3 Distribution Width Platelet Count 284 Mean Platelet Volume 10.4 Immature 0.500 H Granulocytes % Neutrophils % 68.4 Lymphocytes % 14.3 L Monocytes % 11.3 H Eosinophils % 4.9 Basophils % 0.6 Nucleated Red Blood 0.0 Cells % Immature 0.050 H Granulocytes # Neutrophils # 6.6 Lymphocytes # 1.4 Monocytes # 1.1 H Eosinophils # 0.5 Basophils # 0.1 Nucleated Red Blood 0.0 Cells # Sodium Level 134 L Potassium Level 4.1 Chloride Level 103 Carbon Dioxide Level 23 Anion Gap 8 Blood Urea Nitrogen 10 Creatinine 0.43 L Est Glomerular > 60 Filtrat Rate mL/min Glucose Level 183 Calcium Level 8.2 L Test 12/31/18 08:36 12/31/18 13:02 Bedside Glucose 316 H 289 H Medications Medication Current Medications IV Flush (NS 3 ml) 3 ml PER PROTOCOL IV ; Start 12/25/18 at 00:00 Acetaminophen (Tylenol Tab) 650 mg Q6H PRN PO .PAIN 1-3 OR TEMP Last administered on 12/31/18at 08:39; Admin Dose 650 MG; Start 12/25/18 at 00:00 Albuterol/ Ipratropium (Duoneb) 3 ml Q2H RESP THERAPY PRN HHN SHORTNESS OF BREATH; Start 12/25/18 at 00:00 Atorvastatin Calcium (Lipitor) 40 mg QHS PO Last administered on 12/30/18at 20:50; Admin Dose 40 MG; Start 12/25/18 at 21:00 Lisinopril (Zestril) 10 mg DAILY PO Last administered on 12/31/18at 08:40; Admin Dose 10 MG; Start 12/25/18 at 09:00 Metoprolol Tartrate (Lopressor) 12.5 mg BID PO Last administered on 12/31/18at 08:40; Admin Dose 12.5 MG; Start 12/25/18 at 09:00 Diagnostic Test (Pha) (Accu-Chek) 1 ea 02 XX Last administered on 12/31/18at 02:28; Admin Dose 1 EA; Start 12/26/18 at 02:00 Hydralazine HCl (Apresoline) 10 mg Q4H PRN IV sbp >160; Start 12/25/18 at 09:30 Miscellaneous Information 1 ea NOTE XX ; Start 12/25/18 at 09:30 Glucose (Glutose) 15 gm Q15M PRN PO DECREASED GLUCOSE; Start 12/25/18 at 09:30 Glucose (Glutose) 22.5 gm Q15M PRN PO DECREASED GLUCOSE; Start 12/25/18 at 09:30 Dextrose (D50w Syringe) 25 ml Q15M PRN IV DECREASED GLUCOSE; Start 12/25/18 at 09:30 Dextrose (D50w Syringe) 50 ml Q15M PRN IV DECREASED GLUCOSE; Start 12/25/18 at 09:30 Glucagon (Glucagen) 1 mg Q15M PRN IM DECREASED GLUCOSE; Start 12/25/18 at 09:30 Glucose (Glutose) 15 gm Q15M PRN BUCCAL DECREASED GLUCOSE; Start 12/25/18 at 09:30 Quetiapine Fumarate (Seroquel) 12.5 mg QHS PO Last administered on 12/30/18 20:54; Admin Dose 12.5 MG; Start 12/28/18 at 21:00 Insulin Glargine (Lantus) 5 units DAILY@2000 SC Last administered on 12/30/18 20:49; Admin Dose 5 UNITS; Start 12/28/18 at 20:00 IV Flush (NS 3 ml) 3 ml PER PROTOCOL IV ; Start 12/29/18 at 22:00 Naloxone HCl (Narcan) 0.2 mg Q2M PRN IV .RESP RATE; Start 12/29/18 at 22:00 Enoxaparin Sodium (Lovenox) 40 mg DAILY SC Last administered on 12/31/18 08:43; Admin Dose 40 MG; Start 12/30/18 at 09:00 Insulin Aspart (Novolog Insulin Pen) NOVOLOG *MILD* ALGORITHM WITH MEALS BEDTIME SC Last administered on 12/31/18 13:06; Admin Dose 4 UNIT; Start 12/30/18 at 07:50 Ketorolac Tromethamine (Toradol) 15 mg Q6H PRN IV PAIN Last administered on 12/30/18 17:42; Admin Dose 15 MG; Start 12/30/18 at 10:00; Stop 01/02/19 at 09:59 Polyethylene Glycol (Miralax) 17 gm DAILY PO Last administered on 12/31/18 08:40; Admin Dose 17 GM; Start 12/30/18 at 13:00 KYRIE GREGG MD Dec 31, 2018 14:18
[2018-12-31] MEDS ORDERED: BISACODYL (EC) 5 MG TAB PO ONE (14:30)
--- NOTE | 2018-12-31 18:57 | PAC ---
Date/Time of Note Date/Time of Note DATE: 12/31/18 TIME: 18:57 Post-Anesthesia Notes Post-Anesthesia Note Last documented vital signs Vital Signs Date Temp Pulse Resp B/P (MAP) Pulse Ox O2 O2 Flow FiO2 Time Delivery Rate 12/31/18 98.4 95 18 155/72 99 13:47 (99) 12/30/18 Room Air 15:11 12/30/18 2.0 03:00 12/28/18 21 21:45 Activity: WNL Respiratory function: WNL Cardiovascular function: WNL Mental status: Baseline Pain reasonably controlled: Yes Hydration appropriate: Yes Nausea/Vomiting absent: Yes MJ HUFF Dec 31, 2018 18:57
[2018-12-31] MEDS ORDERED: INSULIN GLARGINE [LANTus] (100 UNITS/ML) SYG SC SCH (20:00)
[2018-12-31 20:36] VITALS: BP 144/62; PULSE 103; RESP 18
[2018-12-31] MEDS: ATORVASTATIN 40 MG TAB PO SCH (21:09)
[2018-12-31] MEDS: QUETIAPINE 25 MG TAB PO SCH (21:10)
[2019-01-01] MEDS: ACETAMINOPHEN 325 MG TAB PO PRN ×3 (01:28→16:28)
[2019-01-01] MEDS: ACCU-CHEK XX SCH (01:34)
[2019-01-01 02:30] VITALS: BP 138/72; PULSE 100; RESP 19
[2019-01-01 07:41] VITALS: BP 131/68; PULSE 82; RESP 18
[2019-01-01] MEDS: INSULIN ASPART [NOVOLOG] 3 ML PEN SC SCH ×4 (08:33→21:00)
[2019-01-01] MEDS: ENOXAPARIN 40 MG/0.4 ML SYG SC SCH (08:34)
[2019-01-01] MEDS: POLYETHYLENE GLYCOL 17 GM PACKET PO SCH (08:37)
[2019-01-01] MEDS: LISINOPRIL 10 MG TAB PO SCH (08:37)
[2019-01-01] MEDS: METOPROLOL 25 MG TAB PO SCH ×2 (08:38→21:20)
--- NOTE | 2019-01-01 10:31 | CONS ---
Assessment/Plan Assessment/Plan Assessment/Plan (Daily) Postdated visit for January 03, 2019 She is doing well she is participating in physical therapy she is complaining of pain but it is controlled with her current dose Toradol only. Without nausea vomiting chest pain shortness of breath denies diplopia disorientation Consultation Date/Type/Reason Admit Date/Time Dec 24, 2018 at 19:49 Initial Consult Date Date/Time of Note DATE: 01/01/19 TIME: 10:30 24 HR Interval Summary Free Text/Dictation Postop day 2 doing very well Exam/Review of Systems Exam Vitals Vital Signs Date Temp Pulse Resp B/P (MAP) Pulse Ox O2 O2 Flow FiO2 Time Delivery Rate 01/01/19 98.2 82 18 131/68 96 07:41 (89) 12/30/18 Room Air 15:11 12/30/18 2.0 03:00 12/28/18 21:45 Intake and Output 12/31/18 12/31/18 01/01/19 1515:00 23:00 07:00 IntakeIntake Total 500 ml 640 ml OutputOutput Total 1000 ml BalanceBalance 500 ml -360 ml Extremities: normal pulses; No calf tenderness, No cyanosis, No clubbing, No edema, No pitting pedal edema, No palpable cord, No tenderness, No other Neurological: RESEARCH ASSISTANT MEMBER II-XII intact, nl mental status, nl speech, nl strength; No confused, No DTR's symmetric, No focal weakness, No lethargic, No numbness, No reflexes, No unresponsive, No other Results Result Diagram: 12/31/18 0439 12/31/18 0439 Results 24hrs Laboratory Tests Test 12/31/18 13:02 12/31/18 17:51 12/31/18 21:08 01/01/19 01:32 Bedside Glucose 289 H 213 269 H 212 Test 01/01/19 08:32 Bedside Glucose 179 Medications Medication Current Medications IV Flush (NS 3 ml) 3 ml PER PROTOCOL IV ; Start 12/25/18 at 00:00 Acetaminophen (Tylenol Tab) 650 mg Q6H PRN PO .PAIN 1-3 OR TEMP Last administered on 01/01/19at 08:44; Admin Dose 650 MG; Start 12/25/18 at 00:00 Albuterol/ Ipratropium (Duoneb) 3 ml Q2H RESP THERAPY PRN HHN SHORTNESS OF BREATH; Start 12/25/18 at 00:00 Atorvastatin Calcium (Lipitor) 40 mg QHS PO Last administered on 12/31/18at 21:09; Admin Dose 40 MG; Start 12/25/18 at 21:00 Lisinopril (Zestril) 10 mg DAILY PO Last administered on 01/01/19at 08:37; Admin Dose 10 MG; Start 12/25/18 at 09:00 Metoprolol Tartrate (Lopressor) 12.5 mg BID PO Last administered on 01/01/19at 08:38; Admin Dose 12.5 MG; Start 12/25/18 at 09:00 Diagnostic Test (Pha) (Accu-Chek) 1 ea 02 XX Last administered on 01/01/19at 01:34; Admin Dose 1 EA; Start 12/26/18 at 02:00 Hydralazine HCl (Apresoline) 10 mg Q4H PRN IV sbp >160; Start 12/25/18 at 09:30 Miscellaneous Information 1 ea NOTE XX ; Start 12/25/18 at 09:30 Glucose (Glutose) 15 gm Q15M PRN PO DECREASED GLUCOSE; Start 12/25/18 at 09:30 Glucose (Glutose) 22.5 gm Q15M PRN PO DECREASED GLUCOSE; Start 12/25/18 at 09:30 Dextrose (D50w Syringe) 25 ml Q15M PRN IV DECREASED GLUCOSE; Start 12/25/18 at 09:30 Dextrose (D50w Syringe) 50 ml Q15M PRN IV DECREASED GLUCOSE; Start 12/25/18 at 09:30 Glucagon (Glucagen) 1 mg Q15M PRN IM DECREASED GLUCOSE; Start 12/25/18 at 09:30 Glucose (Glutose) 15 gm Q15M PRN BUCCAL DECREASED GLUCOSE; Start 12/25/18 at 09:30 Quetiapine Fumarate (Seroquel) 12.5 mg QHS PO Last administered on 12/31/18at 21:10; Admin Dose 12.5 MG; Start 12/28/18 at 21:00 IV Flush (NS 3 ml) 3 ml PER PROTOCOL IV ; Start 12/29/18 at 22:00 Naloxone HCl (Narcan) 0.2 mg Q2M PRN IV .RESP RATE; Start 12/29/18 at 22:00 Enoxaparin Sodium (Lovenox) 40 mg DAILY SC Last administered on 01/01/19 08:34 ; Admin Dose 40 MG; Start 12/30/18 at 09:00 Insulin Aspart (Novolog Insulin Pen) NOVOLOG *MILD* ALGORITHM WITH MEALS BEDTIME SC Last administered on 01/01/19 08:33; Admin Dose 1 UNIT; Start 12/30/18 at 07:50 Ketorolac Tromethamine (Toradol) 15 mg Q6H PRN IV PAIN Last administered on 12/30/18 17:42; Admin Dose 15 MG; Start 12/30/18 at 10:00; Stop 01/02/19 at 09:59 Polyethylene Glycol (Miralax) 17 gm DAILY PO Last administered on 01/01/19 08:37; Admin Dose 17 GM; Start 12/30/18 at 13:00 Insulin Glargine (Lantus) 8 units DAILY@2000 SC Last administered on 12/31/18 21:21; Admin Dose 8 UNITS; Start 12/31/18 at 20:00 DONNA SMART Jan 01, 2019 10:31
[2019-01-01 15:05] VITALS: BP 128/62; PULSE 92; RESP 19
--- NOTE | 2019-01-01 16:50 | PN ---
Date/Time of Note Date/Time of Note DATE: 01/01/19 TIME: 16:46 Assessment/Plan VTE Prophylaxis Risk score (from Nsg)>0 risk: 2 SCD applied (from Nsg): Yes Pharmacological prophylaxis: LMWH Lines/Catheters IV Catheter Type (from Nrsg): Peripheral IV Urinary Cath still in place: Yes Reason Cath still needed: other (indicate) Assessment/Plan Assessment/Plan 1. s/p Open reduction and internal fixation of the lateral tibial plateau fracture, follow up with ortho and PT 2. Left fourth metatarsal fracture, follow up with ortho 3. Hypertension, controlled 4. Diabetes, on insulin 5. Dyslipidemia, on lipitor 6. Mild Anemia, stable 7. DVT prophylaxis: lovenox 8. constipation, laxatives 9. Awaiting for SNF placement Result Diagram: 12/31/189 12/31/18438 Results 24hrs Laboratory Tests Test 12/31/18 17:51 12/31/18 21:08 01/01/19 01:32 01/01/19 08:32 Bedside Glucose 213 269 H 212 179 Test 01/01/19 13:16 Bedside Glucose 314 H Subjective 24 Hr Interval Summary Free Text/Dictation no event Exam/Review of Systems Exam Vitals Vital Signs Date Temp Pulse Resp B/P (MAP) Pulse Ox O2 O2 Flow FiO2 Time Delivery Rate 01/01/19 98.9 92 19 128/62 98 15:05 (84) 12/30/18 Room Air 15:11 12/30/18 2.0 03:00 12/28/18 21 21:45 Intake and Output 12/31/18 12/31/18 01/01/19 1515:00 23:00 07:00 IntakeIntake Total 500 ml 640 ml OutputOutput Total 1000 ml BalanceBalance 500 ml -360 ml Constitutional: alert, oriented, well developed Head: normocephalic, atraumatic Eyes: nl conjunctiva, EOMI, nl lids ENMT: nl external ears & nose, nl lips & teeth, nl nasal mucosa & septum Neck: supple, non-tender Respiratory: clear to auscultation, normal air movement; No congested cough, No crackles/rales, No diminished breath sounds, No intercostal retraction, No labored breathing, No respirations, No tactile fremitus, No wheezing, No other Cardiovascular: regular rate and rhythm, nl pulses; No bruits, No diastolic murmur, No edema, No gallop, No irregular rhythm, No jugular venous distention (JVD), No murmurs/extra sounds, No rub, No systolic murmur, No S3, No S4, No other Gastrointestinal: soft, nl liver, spleen, non-tender Extremities: other (right knee pain) Neurological: EVP BUSINESS DEVELOPMENT II-XII intact, nl mental status, nl speech, nl strength Results Results 24hrs Laboratory Tests Test 12/31/18 17:51 12/31/18 21:08 01/01/19 01:32 01/01/19 08:32 Bedside Glucose 213 269 H 212 179 Test 01/01/19 13:16 Bedside Glucose 314 H Medications Medication Current Medications IV Flush (NS 3 ml) 3 ml PER PROTOCOL IV ; Start 12/25/18 at 00:00 Acetaminophen (Tylenol Tab) 650 mg Q6H PRN PO .PAIN 1-3 OR TEMP Last administered on 01/01/19at 16:28; Admin Dose 650 MG; Start 12/25/18 at 00:00 Albuterol/ Ipratropium (Duoneb) 3 ml Q2H RESP THERAPY PRN HHN SHORTNESS OF BREATH; Start 12/25/18 at 00:00 Atorvastatin Calcium (Lipitor) 40 mg QHS PO Last administered on 12/31/18at 21:09; Admin Dose 40 MG; Start 12/25/18 at 21:00 Lisinopril (Zestril) 10 mg DAILY PO Last administered on 01/01/19at 08:37; Admin Dose 10 MG; Start 12/25/18 at 09:00 Metoprolol Tartrate (Lopressor) 12.5 mg BID PO Last administered on 01/01/19at 08:38; Admin Dose 12.5 MG; Start 12/25/18 at 09:00 Diagnostic Test (Pha) (Accu-Chek) 1 ea 02 XX Last administered on 01/01/19at 01:34; Admin Dose 1 EA; Start 12/26/18 at 02:00 Hydralazine HCl (Apresoline) 10 mg Q4H PRN IV sbp >160; Start 12/25/18 at 09:30 Miscellaneous Information 1 ea NOTE XX ; Start 12/25/18 at 09:30 Glucose (Glutose) 15 gm Q15M PRN PO DECREASED GLUCOSE; Start 12/25/18 at 09:30 Glucose (Glutose) 22.5 gm Q15M PRN PO DECREASED GLUCOSE; Start 12/25/18 at 09:30 Dextrose (D50w Syringe) 25 ml Q15M PRN IV DECREASED GLUCOSE; Start 12/25/18 at 09:30 Dextrose (D50w Syringe) 50 ml Q15M PRN IV DECREASED GLUCOSE; Start 12/25/18 at 09:30 Glucagon (Glucagen) 1 mg Q15M PRN IM DECREASED GLUCOSE; Start 12/25/18 at 09:30 Glucose (Glutose) 15 gm Q15M PRN BUCCAL DECREASED GLUCOSE; Start 12/25/18 at 09:30 Quetiapine Fumarate (Seroquel) 12.5 mg QHS PO Last administered on 12/31/18at 21:10; Admin Dose 12.5 MG; Start 12/28/18 at 21:00 IV Flush (NS 3 ml) 3 ml PER PROTOCOL IV ; Start 12/29/18 at 22:00 Naloxone HCl (Narcan) 0.2 mg Q2M PRN IV .RESP RATE; Start 12/29/18 at 22:00 Enoxaparin Sodium (Lovenox) 40 mg DAILY SC Last administered on 01/01/19 08:34; Admin Dose 40 MG; Start 12/30/18 at 09:00 Insulin Aspart (Novolog Insulin Pen) NOVOLOG *MILD* ALGORITHM WITH MEALS BEDTIME SC Last administered on 01/01/19 13:21; Admin Dose 5 UNIT; Start 12/30/18 at 07:50 Ketorolac Tromethamine (Toradol) 15 mg Q6H PRN IV PAIN Last administered on 12/30/18at 17:42; Admin Dose 15 MG; Start 12/30/18 at 10:00; Stop 01/02/19 at 09:59 Polyethylene Glycol (Miralax) 17 gm DAILY PO Last administered on 01/01/19 08:37; Admin Dose 17 GM; Start 12/30/18 at 13:00 Insulin Glargine (Lantus) 8 units DAILY@2000 SC Last administered on 12/31/18 21:21; Admin Dose 8 UNITS; Start 12/31/18 at 20:00 KYRIE GREGG MD Jan 01, 2019 16:50
[2019-01-01] MEDS ORDERED: POLYETHYLENE GLYCOL 17 GM PACKET NGT PRN (17:00)
[2019-01-01 19:25] VITALS: BP 135/69; PULSE 97; RESP 20
[2019-01-01] MEDS ORDERED: INSULIN GLARGINE [LANTus] (100 UNITS/ML) SYG SC SCH (20:00)
[2019-01-01] MEDS: SOD FERRIC GLUC COMPLX 125 MG in SOD CHLORIDE 0.9% 100 ML IVPB SCH (20:29)
[2019-01-01] MEDS: QUETIAPINE 25 MG TAB PO SCH (21:20)
[2019-01-01] MEDS: ATORVASTATIN 40 MG TAB PO SCH (21:22)
[2019-01-02] MEDS: ACETAMINOPHEN 325 MG TAB PO PRN ×3 (01:07→15:04)
[2019-01-02] MEDS: ACCU-CHEK XX SCH (01:07)
[2019-01-02 02:20] VITALS: BP 117/56; PULSE 89; RESP 20
[2019-01-02] MEDS: INSULIN ASPART [NOVOLOG] 3 ML PEN SC SCH ×2 (08:33→12:49)
[2019-01-02] MEDS: ENOXAPARIN 40 MG/0.4 ML SYG SC SCH (08:34)
[2019-01-02] MEDS: METOPROLOL 25 MG TAB PO SCH (08:37)
[2019-01-02] MEDS: LISINOPRIL 10 MG TAB PO SCH (08:37)
[2019-01-02] MEDS: POLYETHYLENE GLYCOL 17 GM PACKET PO SCH (08:39)
[2019-01-02 08:47] VITALS: BP 146/65; PULSE 92; RESP 18
--- NOTE | 2019-01-02 08:50 | PN ---
Date/Time of Note Date/Time of Note DATE: 01/02/19 TIME: 08:50 Assessment/Plan VTE Prophylaxis Risk score (from Nsg)>0 risk: 7 SCD applied (from Nsg): Yes Pharmacological prophylaxis: LMWH Lines/Catheters IV Catheter Type (from Nrsg): Peripheral IV Urinary Cath still in place: No Assessment/Plan Assessment/Plan 1. Right tibial plateau and left fourth metatarsal fracture s/p ORIF of the lateral tibial plateau fracture - Patient pain controlled with Tylenol - Ortho on board and appreciate consultation - PT cleared patient for discharge home. Discussed with patient need to make sifuentes re she continues to ambulate while at home and not remain sedentary - Cardiology input appreciated and ECHO/EKG reviewed. Continue current medications 2. Hypertension - Continue home meds 3. Diabetes - Insulin while in house - on metformin as outpatient 4. Dyslipidemia - Continue home meds 5. Mild Anemia - Monitor 6. Disposition - Medically stable for discharge home Result Diagram: 12/31/18 0439 12/31/18 0439 Results 24hrs Laboratory Tests Test 01/01/19 13:16 01/01/19 17:55 01/01/19 21:16 01/02/19 01:06 Bedside Glucose 314 H 247 H 251 H 187 Test 01/02/19 08:30 Bedside Glucose 174 Subjective 24 Hr Interval Summary Free Text/Dictation Patient complaining of pain in right hip but relieved with tylenol. Family not willing to wait for placement and would like to take patient home. Cleared from PT for d/c home. Exam/Review of Systems Exam Vitals Vital Signs Date Temp Pulse Resp B/P (MAP) Pulse Ox O2 O2 Flow FiO2 Time Delivery Rate 01/02/19 98.6 89 20 117/56 95 02:20 (76) 01/01/19 Room Air 19:25 12/30/18 2.0 03:00 Intake and Output 01/01/19 01/01/19 01/02/19 1515:00 23:00 07:00 IntakeIntake Total 340 ml 340 ml BalanceBalance 340 ml 340 ml Exam General: Patient is laying in bed and answers questions appropriately Respiratory: Clear to auscultation bilaterally. no wheezing or rhonchi Cardiovascular: regular rate and rhythm, no obvious murmurs Gastrointestinal: non-tender to palpation, bowel sounds heard. Ext: non mobilized right LE Skin: incision site clean and dry Results Results 24hrs Laboratory Tests Test 01/01/19 13:16 01/01/19 17:55 01/01/19 21:16 01/02/19 01:06 Bedside Glucose 314 H 247 H 251 H 187 Test 01/02/19 08:30 Bedside Glucose 174 Medications Medication Current Medications IV Flush (NS 3 ml) 3 ml PER PROTOCOL IV ; Start 12/25/18 at 00:00 Acetaminophen (Tylenol Tab) 650 mg Q6H PRN PO .PAIN 1-3 OR TEMP Last administered on 01/02/19at 01:07; Admin Dose 650 MG; Start 12/25/18 at 00:00 Albuterol/ Ipratropium (Duoneb) 3 ml Q2H RESP THERAPY PRN HHN SHORTNESS OF BREATH; Start 12/25/18 at 00:00 Atorvastatin Calcium (Lipitor) 40 mg QHS PO Last administered on 01/01/19at 21:22; Admin Dose 40 MG; Start 12/25/18 at 21:00 Lisinopril (Zestril) 10 mg DAILY PO Last administered on 01/01/19at 08:37; Admin Dose 10 MG; Start 12/25/18 at 09:00 Metoprolol Tartrate (Lopressor) 12.5 mg BID PO Last administered on 01/01/19at 21:20; Admin Dose 12.5 MG; Start 12/25/18 at 09:00 Diagnostic Test (Pha) (Accu-Chek) 1 ea 02 XX Last administered on 01/02/19at 01 :07; Admin Dose 1 EA; Start 12/26/18 at 02:00 Hydralazine HCl (Apresoline) 10 mg Q4H PRN IV sbp >160; Start 12/25/18 at 09:30 Miscellaneous Information 1 ea NOTE XX ; Start 12/25/18 at 09:30 Glucose (Glutose) 15 gm Q15M PRN PO DECREASED GLUCOSE; Start 12/25/18 at 09:30 Glucose (Glutose) 22.5 gm Q15M PRN PO DECREASED GLUCOSE; Start 12/25/18 at 09:30 Dextrose (D50w Syringe) 25 ml Q15M PRN IV DECREASED GLUCOSE; Start 12/25/18 at 09:30 Dextrose (D50w Syringe) 50 ml Q15M PRN IV DECREASED GLUCOSE; Start 12/25/18 at 09:30 Glucagon (Glucagen) 1 mg Q15M PRN IM DECREASED GLUCOSE; Start 12/25/18 at 09:30 Glucose (Glutose) 15 gm Q15M PRN BUCCAL DECREASED GLUCOSE; Start 12/25/18 at 09:30 Quetiapine Fumarate (Seroquel) 12.5 mg QHS PO Last administered on 01/01/19 21:20; Admin Dose 12.5 MG; Start 12/28/18 at 21:00 IV Flush (NS 3 ml) 3 ml PER PROTOCOL IV ; Start 12/29/18 at 22:00 Naloxone HCl (Narcan) 0.2 mg Q2M PRN IV .RESP RATE; Start 12/29/18 at 22:00 Enoxaparin Sodium (Lovenox) 40 mg DAILY SC Last administered on 01/01/19 08:34; Admin Dose 40 MG; Start 12/30/18 at 09:00 Insulin Aspart (Novolog Insulin Pen) NOVOLOG *MILD* ALGORITHM WITH MEALS BEDTIME SC Last administered on 01/01/19 17:59; Admin Dose 3 UNIT; Start 12/30/18 at 07:50 Ketorolac Tromethamine (Toradol) 15 mg Q6H PRN IV PAIN Last administered on 12/30/18 17:42; Admin Dose 15 MG; Start 12/30/18 at 10:00; Stop 01/02/19 at 09:59 Polyethylene Glycol (Miralax) 17 gm DAILY PO Last administered on 01/01/19 08:37; Admin Dose 17 GM; Start 12/30/18 at 13:00 Ferric Sodium Gluconate Complex 125 mg/Sodium Chloride 100 ml @ 100 mls/hr DAILY@1300 IVPB Last administered on 01/01/19at 20:29; Admin Dose 100 MLS/HR; Start 01/01/19 at 18:00; Stop 01/03/19 at 13:59 Insulin Glargine (Lantus) 12 units DAILY@2000 SC Last administered on 01/01/19 21:17; Admin Dose 12 UNITS; Start 01/01/19 at 20:00 Polyethylene Glycol (Miralax) 17 gm DAILY PRN NGT CONSTIPATION; Start 01/01/19 at 17:00 EDY FOWLER MD Jan 02, 2019 08:50
[2019-01-02] MEDS ORDERED: ACET325T33 PO (11:01)
[2019-01-02] MEDS ORDERED: ASPI-817 PO (11:01)
--- NOTE | 2019-01-02 11:04 | PDOCDIS ---
Discharge Instructions DIAGNOSIS Discharge Diagnosis 1. Right tibial plateau and left fourth metatarsal fracture s/p ORIF of the lateral tibial plateau fracture 2. Hypertension 3. Diabetes 4. Dyslipidemia 5. Mild Anemia CONDITION [id number] Patient Condition: [id number] Stable HOME CARE INSTRUCTIONS: [id number] Diet Instructions: [id number] Low Fat /Cholesterol FOLLOW UP/APPOINTMENTS Follow-up Plan 1. Follow up with your primary care physician in 1 week 2. Follow up with Dr. Stone in 1 week 3. Take Tylenol as needed for pain control 4. Take aspirin twice a day for 6 weeks then continue daily as previously prescribed 5. If experiencing any concerning symptoms, please go to your closest emergency department 6. Try not to stay immobile while at home which will delay your recovery. you will be provided with a walker to use to help ambulate 1. seguimiento con sifuentes mdico de atencin primaria en 1 semana 2. seguimiento con el Dr. Stone en 1 semana 3. [place] Tylenol segn sea necesario para el control del dolor 4. [place] aspirina dos veces al da melany 6 semanas y luego continuar diariamente marcello se prescribi previamente 5. Si experimenta algn sntoma relacionado, por favor vaya a sifuentes Departamento de emergencias ms cercano 6. trate de no permanecer inmvil mientras est en casa, lo que retrasar sifuentes recuperacin. se le proporcionar un caminador para usar para ayudar a ambular EDY FOWLER MD Jan 02, 2019 11:04
[2019-01-02] MEDS: SOD FERRIC GLUC COMPLX 125 MG in SOD CHLORIDE 0.9% 100 ML IVPB SCH (12:55)
[2019-01-02] MEDS ORDERED: TRAZ-111 PO (13:42)
[2019-01-02 14:00] VITALS: BP 130/62; PULSE 90; RESP 18
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
== END 2019-01-02 15:05 | disposition home or self-care (01) | DRG 493 ==
LOC: E/R 18:46 → MS1 19:49
PROVIDERS: ADMIT Internal Medicine; ATTEND Internal Medicine
PROC: 0QSG04Z Reposition Right Tibia with Internal Fixation Device, Open Approach (ICD-10-PCS; principal; 2018-12-29 18:30)
DX: S82.141A Displaced bicondylar fracture of right tibia, initial encounter for closed fracture (principal); S92.342A Displaced fracture of fourth metatarsal bone, left foot, initial encounter for closed fracture; R44.3 Hallucinations, unspecified; R41.0 Disorientation, unspecified; T40.695A Adverse effect of other narcotics, initial encounter; I10 Essential (primary) hypertension; E11.9 Type 2 diabetes mellitus without complications; E78.5 Hyperlipidemia, unspecified; D64.9 Anemia, unspecified; V03.10XA Pedestrian on foot injured in collision with car, pick-up truck or van in traffic accident, initial encounter; K59.00 Constipation, unspecified; Z85.3 Personal history of malignant neoplasm of breast
CPT/HCPCS: 36600; 70450; 71045; 73560; 73562; 73590; 73700; 80048; 80053; 80061; 80069; 82728; 82803; 82962; 83036; 83540; 83735; 84100; 84484; 85025; 85610; 85730; 86850; 86900; 86901; 86920; 93005; 93306; 97110; 97116; 97163; 97164; 97530; C1713; J0131; J0690; J1170; J1644; J1650; J1815; J1885; J2001; J2270; J2405; J2916; J3010; J7030; J7042; L1832; L3260